=== PATIENT | female | born 1980 | race Caucasian/White ===

== ENCOUNTER → 2018-02-27 14:10 | Outpatient (CLI) | payer OTHER, SELFPAY ==
[2018-02-27 16:02] LABS: TSH w/ Reflex to FT4 1.19 uIU/mL (0.47-4.68)
== END ==
PROVIDERS: Family Provider Family Medicine; PCP Family Medicine; Visit Provider Family Medicine
DX: E04.9 Nontoxic goiter, unspecified (principal)
CPT/HCPCS: 36415; 84443

== ENCOUNTER → 2019-01-12 08:11 | Outpatient (CLI) | payer OTHER, SELFPAY ==
--- NOTE | 2019-01-12 | DI.MG.S_ITS ---
BILATERAL DIGITAL SCREENING MAMMOGRAM 3D/2D WITH CAD: 01/12/2019 CLINICAL: Routine screening. Baseline exam. Family history of breast cancer. No prior exams were available for comparison. There are scattered fibroglandular elements in both breasts. Current study was also evaluated with a Computer Aided Detection (CAD) system. There is a 0.8 cm oval low density mass with an indistinct and circumscribed margin in the right breast at 7 o'clock posterior depth. No other significant masses, calcifications, or other findings are seen in either breast. IMPRESSION: INCOMPLETE: NEEDS ADDITIONAL IMAGING EVALUATION The 0.8 cm oval low density mass in the right breast is indeterminate. Mediolateral and spot compression views as well as additional views with possible ultrasound are recommended. This exam was interpreted at Station ID: [id number]. NOTE: For mammograms, a report in lay terms will be sent to the patient. Approximately 15% of breast malignancies will not be visualized mammographically. In the management of a palpable breast mass, a negative mammogram must not discourage biopsy of a clinically suspicious lesion. Electronically Signed By: Sukhjinder gil/sarah:01/14/2019 07:50:27 letter sent: Additional Imaging Needed ACR BI-RADS Category 0: Incomplete 3340F
== END ==
PROVIDERS: Family Provider Family Medicine; PCP Family Medicine; Visit Provider Family Medicine
DX: Z12.31 Encounter for screening mammogram for malignant neoplasm of breast (principal); Z80.3 Family history of malignant neoplasm of breast
CPT/HCPCS: 77063; 77067

== ENCOUNTER → 2019-01-19 08:14 | Outpatient (CLI) | payer OTHER, SELFPAY ==
[2019-01-19 08:53] LABS: Hematocrit 40.6 % (36-46); Hemoglobin 13.9 g/dL (12.0-16.0); Mean Corpuscular HGB Conc 34.4 % (30-36); Mean Corpuscular Hemoglobin 30.1 PG (26-34); Mean Corpuscular Volume 87.5 fL (80-100); Platelet Count 355 X10^3/uL (150-400); Red Blood Cell Count 4.64 X10^6/uL (4.0-5.2); Red Cell Distribution Width 13.1 % (11.6-14.8); White Blood Cell Count 6.4 X10^3/uL (4.5-11.0)
[2019-01-19 09:09] LABS: Alanine Aminotransferase 20 IU/L (<35); Albumin 4.5 g/dL (3.5-5.0); Albumin Globulin Ratio 1.8 (1.0-2.8); Alkaline Phosphatase 50 U/L (38-126); Aspartate Aminotransferase 26 IU/L (14-36); Bilirubin Total 0.7 mg/dL (0.2-1.3); Blood Urea Nitrogen 12 mg/dL (7-17); Calcium 9.2 mg/dL (8.4-10.2); Carbon Dioxide 29 mmol/L (22-32); Chloride 100 mmol/L (98-107); Cholesterol 211 mg/dL (140-199); Estimated Glomerular Filt Rate > 60.0 mL/min (>60); Globulin 2.5 g/dL (1.7-4.1); Glucose 88 mg/dL (70-100); HDL Cholesterol 86 mg/dL (40-60); HEMOLYSIS 16 (0-50); LDL Cholesterol Calculated 112 mg/dL (<100); Potassium 3.8 mmol/L (3.4-5.1); Sodium 137 mmol/L (137-145); Triglycerides 67 mg/dL (35-150)
[2019-01-19 09:37] LABS: TSH w/ Reflex to FT4 1.46 uIU/mL (0.47-4.68)
== END ==
PROVIDERS: Family Provider Family Medicine; PCP Family Medicine; Visit Provider Nurse Practitioner Family
DX: Z00.00 Encounter for general adult medical examination without abnormal findings (principal); Z13.6 Encounter for screening for cardiovascular disorders; E04.2 Nontoxic multinodular goiter
CPT/HCPCS: 36415; 80053; 80061; 84443; 85027

== ENCOUNTER → 2019-02-06 12:39 | Outpatient (CLI) | payer OTHER, SELFPAY ==
--- NOTE | 2019-02-06 12:41 | DI.US.S_ITS ---
ULTRASOUND OF RIGHT BREAST: 02/06/2019 CLINICAL: Patient returns today to evaluate a focal asymmetry in the right breast. Comparison is made to exams dated: 02/06/2019 mammogram and 01/12/2019 mammogram - [facility]. Real-time ultrasound of the right breast was performed. Jama scale images of the real-time examination were reviewed. No significant abnormalities were seen sonographically in the right breast. The breast was imaged from the 5:30 through the 10:00 positions. IMPRESSION: PROBABLY BENIGN There are no abnormalities seen in the right breast to correspond with the mammography finding. A follow-up right mammogram with possible ultrasound in 6 months is recommended to demonstrate stability. This exam was interpreted at Station ID: [id number]. Electronically Signed By: Darell Candelario M.D. aty/:02/06/2019 14:56:02 copy to: [facility] letter sent: Followup Recommended Ultrasound BI-RADS: 3 Probably benign
--- NOTE | 2019-02-06 12:41 | DI.MG.S_ITS ---
UNILATERAL RIGHT DIGITAL DIAGNOSTIC MAMMOGRAM 3D/2D WITH ADDITIONAL VIEWS: 02/06/2019 CLINICAL: Additional evaluation requested from prior study. Comparison is made to exam dated[facility]. There are scattered fibroglandular elements in right breast. There is a 0.8 cm oval equal density focal asymmetry in the right breast at 8 o'clock posterior depth. This finding persisted on additional imaging today. No other significant masses or calcifications are seen in the breast. IMPRESSION: INCOMPLETE: NEEDS ADDITIONAL IMAGING EVALUATION The 0.8 cm oval equal density focal asymmetry in the right breast is indeterminate. Further evaluation with sonogram is recommended which is scheduled to immediately follow this examination. This exam was interpreted at Station ID: [id number]. NOTE: For mammograms, a report in lay terms will be sent to the patient. Approximately 15% of breast malignancies will not be visualized mammographically. In the management of a palpable breast mass, a negative mammogram must not discourage biopsy of a clinically suspicious lesion. Electronically Signed By: Darell Candelario M.D. at/:02/06/2019 13:24:51 copy to: [facility] ACR BI-RADS Category 0: Incomplete [id number]
== END ==
PROVIDERS: PCP Family Medicine; Visit Provider Family Medicine
DX: R92.8 Other abnormal and inconclusive findings on diagnostic imaging of breast (principal); N64.89 Other specified disorders of breast
CPT/HCPCS: 76642; 77065; G0279

== ENCOUNTER → 2019-09-04 12:21 | Outpatient (CLI) | payer OTHER, SELFPAY | PROVIDERS: PCP Family Medicine; Visit Provider Physician Assistant | DX: R30.0 Dysuria (principal) | CPT/HCPCS: 87077; 87086; 87186 ==

== ENCOUNTER → 2020-01-20 14:19 | Outpatient (CLI) | payer OTHER, SELFPAY ==
--- NOTE | 2020-01-20 14:20 | DI.MG.S_ITS ---
BILATERAL DIGITAL DIAGNOSTIC MAMMOGRAM 3D/2D: 01/20/2020 CLINICAL: LATE SHORT TERM FOLLOW UP. Comparison is made to exams dated: 02/06/2019 mammogram and 01/12/2019 mammogram - [facility]. There are scattered fibroglandular elements in both breasts. There is a 0.8 cm oval equal density focal asymmetry in the right breast at 8 o'clock posterior depth. This is not significantly changed and was not seen on the prior ultrasound. Targeted ultrasound was performed for this abnormality on the same day and no sonographic correlate was found. No other significant masses, calcifications, or other findings are seen in either breast. IMPRESSION: PROBABLY BENIGN The 0.8 cm oval equal density focal asymmetry in the right breast at 8 o'clock posterior depth is probably benign. A follow-up right mammogram in 6 months is recommended to demonstrate stability. This exam was interpreted at Station ID: [id number]. NOTE: For mammograms, a report in lay terms will be sent to the patient. Approximately 15% of breast malignancies will not be visualized mammographically. In the management of a palpable breast mass, a negative mammogram must not discourage biopsy of a clinically suspicious lesion. Electronically Signed By: Jose Brandon M.D. ar/:01/20/2020 15:41:12 letter sent: Followup Recommended ACR BI-RADS Category 3: Probably benign [id number]
--- NOTE | 2020-01-20 14:20 | DI.US.S_ITS ---
LIMITED ULTRASOUND OF RIGHT BREAST: 01/20/2020 CLINICAL: Patient returns today for a six month follow up to evaluate a focal asymmetry in the right breast. Comparison is made to exams dated: 01/20/2020 mammogram, 02/06/2019 ultrasound, 02/06/2019 mammogram, and 01/12/2019 mammogram - Loc[facility]. Ultrasound of the right breast 7-8 o'clock region was performed. No significant abnormalities were seen sonographically in the right breast. IMPRESSION: NEGATIVE There is no sonographic evidence of malignancy. There is no abnormality seen in the right breast to correspond with the mammography finding. A follow-up right mammogram in 6 months is recommended to demonstrate stability. This exam was interpreted at Station ID: [id number]. Electronically Signed By: Jose michel/sarah:01/20/2020 15:43:33 Ultrasound BI-RADS: 1 Negative
== END ==
PROVIDERS: PCP Family Medicine; Referring Provider Family Medicine; Visit Provider Family Medicine
DX: R92.8 Other abnormal and inconclusive findings on diagnostic imaging of breast (principal); N64.89 Other specified disorders of breast
CPT/HCPCS: 76642; 77066; G0279

== ENCOUNTER → 2020-09-15 08:07 | Outpatient (CLI) | payer OTHER, SELFPAY ==
[2020-09-15 09:43] LABS: Add Manual Diff / Slide Review NO; Basophils Absolute Auto 0 /uL (0-100); Basophils Percent Auto 0.5 % (0-2); Eosinophils Absolute Auto 100 /uL (0-450); Hematocrit 39.7 % (36-46); Hemoglobin 13.3 g/dL (12.0-16.0); Lymphocytes Absolute Auto 2000 /uL (1100-4500); Lymphocytes Percent Auto 29.6 % (25-40); Mean Corpuscular HGB Conc 33.4 % (30-36); Mean Corpuscular Hemoglobin 29.2 PG (26-34); Mean Corpuscular Volume 87.5 fL (80-100); Monocytes Absolute Auto 400 /uL (0-900); Monocytes Percent Auto 6.1 % (3-14); Neutrophils Absolute Auto 4200 /uL (1500-7000); Neutrophils Percent Auto 62.8 % (50-75); Platelet Count 338 X10^3/uL (150-400); Red Blood Cell Count 4.54 X10^6/uL (4.0-5.2); Red Cell Distribution Width 13.9 % (11.6-14.8); White Blood Cell Count 6.6 X10^3/uL (4.5-11.0)
[2020-09-15 10:59] LABS: Alanine Aminotransferase 21 IU/L (<35); Albumin 4.1 g/dL (3.5-5.0); Albumin Globulin Ratio 1.5 (1.0-2.8); Alkaline Phosphatase 49 U/L (38-126); Aspartate Aminotransferase 30 IU/L (14-36); Bilirubin Total 0.7 mg/dL (0.2-1.3); Blood Urea Nitrogen 12 mg/dL (7-17); C-Reactive Protein Quant 0.6 mg/dL (<1.0); Calcium 9.3 mg/dL (8.4-10.2); Carbon Dioxide 28 mmol/L (22-32); Chloride 105 mmol/L (98-107); Cholesterol 220 mg/dL (140-199); Estimated Glomerular Filt Rate > 60.0 mL/min (>60); Globulin 2.7 g/dL (1.7-4.1); Glucose 92 mg/dL (70-100); HDL Cholesterol 87 mg/dL (40-60); HEMOLYSIS < 15 (0-50); LDL Cholesterol Calculated 120 mg/dL (<100); Sodium 137 mmol/L (137-145); Total Protein 6.8 g/dL (6.3-8.2); Triglycerides 67 mg/dL (35-150)
[2020-09-15 11:00] LABS: Rheumatoid Factor < 8.6 IU/mL (<12.0)
[2020-09-15 12:11] LABS: TSH w/ Reflex to FT4 1.15 uIU/mL (0.47-4.68)
[2020-09-16 17:45] LABS: ANA Screen, IFA Negative (.)
== END ==
PROVIDERS: PCP Family Medicine; Referring Provider Family Medicine; Visit Provider Family Medicine
DX: R21 Rash and other nonspecific skin eruption (principal); E04.9 Nontoxic goiter, unspecified; E66.9 Obesity, unspecified
CPT/HCPCS: 36415; 80053; 80061; 84443; 85025; 86038; 86140; 86430

== ENCOUNTER → 2021-01-20 15:11 | Outpatient (CLI) | payer OTHER, SELFPAY ==
--- NOTE | 2021-01-20 15:12 | DI.MG.S_ITS ---
BILATERAL DIGITAL DIAGNOSTIC MAMMOGRAM 3D/2D: 01/20/2021 CLINICAL: Short term follow up of the right breast, due for bilateral imaging. Family history of breast cancer. Comparison is made to exams dated: 01/20/2020 mammogram, 02/06/2019 mammogram, and 01/12/2019 mammogram - [facility]. There are scattered fibroglandular elements in both breasts. Stable focal asymmetry in the right breast at 8 o'clock posterior depth. This was not seen on the prior ultrasound. No other significant masses, calcifications, or other findings are seen in either breast. IMPRESSION: NEGATIVE Focal asymmetry in the right breast at 8 o'clock posterior depth demonstrates long-term stability and is most consistent with fibroglandular tissue and is benign. A 1 year screening mammogram is recommended. Exam findings were conveyed to the patient. This exam was interpreted at Station ID: [id number]. NOTE: For mammograms, a report in lay terms will be sent to the patient. Approximately 15% of breast malignancies will not be visualized mammographically. In the management of a palpable breast mass, a negative mammogram must not discourage biopsy of a clinically suspicious lesion. Electronically Signed By: Santi Payne M.D. [facility] [place]/:01/20/2021 15:38:22 letter sent: Normal Exam ACR BI-RADS Category 1: Negative 3341F
== END ==
PROVIDERS: PCP Family Medicine; Referring Provider Family Medicine; Visit Provider Family Medicine
DX: R92.8 Other abnormal and inconclusive findings on diagnostic imaging of breast (principal); Z80.3 Family history of malignant neoplasm of breast; N64.89 Other specified disorders of breast
CPT/HCPCS: 77066; G0279

== ENCOUNTER → 2022-01-18 16:38 | Outpatient (CLI) | payer OTHER, SELFPAY ==
--- NOTE | 2022-01-18 16:41 | DI.US.S_ITS ---
PROCEDURE: US THYROID INDICATIONS: 2.5 year f/u on nodules TECHNIQUE: Real-time scanning was performed of the thyroid gland, with image documentation. COMPARISON: [facility], US, THYROID, 02/28/2017, 14:02. [facility] Ultrasound, US, US THYROID, 04/02/2019, 17:09. FINDINGS: The right thyroid measures 6.0 x 1.8 x 2.1 cm (previously 5.0 x 1.6 x 1.8 cm). The left thyroid lobe measures 5.2 x 3.6 x 3.0 cm (previously 5.9 x 3.6 x 3.4 cm). Isthmus measures 4 mm in thickness. Nodule number: 1 Location: Left mid Size: 4.5 x 3.0 x 2.8 cm, increased from 3.5 x 3.2 x 2.9 cm in March 2019, 4.7 x 3.5 x 3.7 cm on 2017 exam. Composition: Solid Echogenicity: Hypoechoic Shape: Wider than tall Margins: Munoz Echogenic foci: Coarse central and peripheral calcification. Total points: 6 ACR TI-RADS category: Moderately suspicious Nodule number: 2 Location: Right mid Size: 3.2 x 1.4 x 1.3 cm, previously 2.5 x 1.2 x 1.0 cm on March 2019 exam and 2.5 x 1.0 x 1.1 cm in 2017. Composition: Predominantly solid Echogenicity: Hypoechoic Shape: Wider than tall Margins: Lobulated Echogenic foci: None. Total points: 6 ACR TI-RADS category: Moderately suspicious. Nodule number: 3 Location: Right inferior Size: 1.9 x 1.1 x 1.1 cm, not significantly changed from 2017 measuring 1.2 x 1.1 x 1.0 cm. Composition: Solid Echogenicity: Isoechoic and hypoechoic Shape: Wider than tall Margins: Smooth Echogenic foci: None Total points: 4 ACR TI-RADS category: Moderately suspicious. IMPRESSION: Multiple bilateral thyroid nodules have only slightly increased in size since 2017 exam (and have waxed/waned on successive exams since 2012). Findings are considered benign. ACR TI-RADS definitions and recommendations: TI-RADS 1 (benign): 0 points. FNA not needed. TI-RADS 2 (not suspicious): 2 points. FNA not needed. TI-RADS 3 (mildly suspicious): 3 points. * FNA if 2.5 cm or larger, follow up if 1.5 cm or larger (at 1, 3, and 5 years). TI-RADS 4 (moderately suspicious): 4-6 points. * FNA if 1.5 cm or larger, follow up if 1 cm or larger (at 1, 2, 3, and 5 years). TI-RADS 5 (highly suspicious): 7 points or more. * FNA if 1 cm or larger, follow up if 0.5 cm or larger (every year for 5 years). Dictated by: Vincent Castellano M.D. on 01/19/2022 at 12:07 Approved by: Vincent Castellano M.D. on 01/19/2022 at 12:15
== END ==
PROVIDERS: PCP Family Medicine; Referring Provider Physician Assistant; Visit Provider Physician Assistant
DX: E04.2 Nontoxic multinodular goiter (principal)
CPT/HCPCS: 76536

== ENCOUNTER → 2022-01-25 15:40 | Outpatient (CLI) | payer OTHER, SELFPAY ==
--- NOTE | 2022-01-25 15:42 | DI.MG.S_ITS ---
BILATERAL DIGITAL SCREENING MAMMOGRAM 3D/2D WITH CAD: 01/25/2022 CLINICAL: Routine screening. Family history of breast cancer. Comparison is made to exams dated: 01/20/2021 mammogram, 01/20/2020 mammogram, and 01/12/2019 mammogram - [facility]. There are scattered areas of fibroglandular density in both breasts (category b / 25%-50% glandular tissue). Current study was also evaluated with a Computer Aided Detection (CAD) system. No significant masses, calcifications, or other findings are seen in either breast. There has been no significant interval change. IMPRESSION: NEGATIVE There is no mammographic evidence of malignancy. A 1 year screening mammogram is recommended. Based on Tyrer-Cuzick model (a risk assessment model), the patient's lifetime risk is 21.5% and her 10 year risk is 3.6%. If a patient has an elevated risk, a more comprehensive evaluation should be considered and/or a referral to a genetic counselor. The [place] [employer], [employer], and NCCN Guidelines advise the consideration of Breast MRI as an adjunct to screening mammography in patients whose Lifetime risk to develop breast cancer is 20% or higher. This exam was interpreted at Station ID: [id number]. NOTE: For mammograms, a report in lay terms will be sent to the patient. Approximately 15% of breast malignancies will not be visualized mammographically. In the management of a palpable breast mass, a negative mammogram must not discourage biopsy of a clinically suspicious lesion. Electronically Signed By: Joanne brasher/sarah:01/26/2022 11:05:39 letter sent: Normal Exam ACR BI-RADS Category 1: Negative 3341F
== END ==
PROVIDERS: PCP Family Medicine; Referring Provider Family Medicine; Visit Provider Family Medicine
DX: Z12.31 Encounter for screening mammogram for malignant neoplasm of breast (principal); Z80.3 Family history of malignant neoplasm of breast
CPT/HCPCS: 77063; 77067

== ENCOUNTER → 2022-05-19 17:00 | Outpatient (CLI) | payer OTHER, SELFPAY ==
--- NOTE | 2022-05-19 17:03 | DI.RAD.S_ITS ---
PROCEDURE: XR HIP W PEL IF DONE LT 2V INDICATIONS: Left hip pain TECHNIQUE: AP pelvis with lateral view(s) of the left hip(s). COMPARISON: None. FINDINGS: Bones: No fractures or dislocations. Pelvic ring appears intact. No suspicious bony lesions. Soft tissues: The visualized bowel gas pattern is normal. No suspicious soft tissue calcifications. IMPRESSION: No significant osseous abnormality. Dictated by: Santi Payne M.D. on 05/20/2022 at 9:32 Approved by: Santi Payen M.D. on 05/20/2022 at 9:32
== END ==
PROVIDERS: Family Provider Family Medicine; PCP Family Medicine; Referring Provider Family Medicine; Visit Provider Family Medicine
DX: M25.552 Pain in left hip (principal); E04.2 Nontoxic multinodular goiter; E66.9 Obesity, unspecified; Z68.31 Body mass index [BMI] 31.0-31.9, adult
CPT/HCPCS: 36415; 73502; 80053; 84443

== ENCOUNTER → 2022-05-19 17:31 | Outpatient (CLI) | payer OTHER, SELFPAY ==
[2022-05-19 18:14] LABS: Alanine Aminotransferase 25 IU/L (<35); Albumin 4.3 g/dL (3.5-5.0); Albumin Globulin Ratio 1.5 (1.0-2.8); Alkaline Phosphatase 49 U/L (38-126); Aspartate Aminotransferase 26 IU/L (14-36); BUN Creatinine Ratio 22.4 (6-22); Bilirubin Total 0.4 mg/dL (0.2-1.3); Blood Urea Nitrogen 13 mg/dL (7-17); Calcium 8.7 mg/dL (8.4-10.2); Carbon Dioxide 27 mmol/L (22-32); Chloride 100 mmol/L (98-107); Estimated Glomerular Filt Rate > 60 mL/min (>60); Globulin 2.9 g/dL (1.7-4.1); Glucose 85 mg/dL (70-100); HEMOLYSIS 39 (0-50); Potassium 3.7 mmol/L (3.4-5.1); Sodium 135 mmol/L (137-145); Total Protein 7.2 g/dL (6.3-8.2)
[2022-05-19 18:55] LABS: TSH w/ Reflex to FT4 2.25 uIU/mL (0.47-4.68)
== END ==
PROVIDERS: Family Provider Family Medicine; PCP Family Medicine; Referring Provider Family Medicine; Visit Provider Family Medicine
DX: E04.2 Nontoxic multinodular goiter (principal); E66.9 Obesity, unspecified; Z68.31 Body mass index [BMI] 31.0-31.9, adult
CPT/HCPCS: 36415; 80053; 84443

== ENCOUNTER 2022-08-22 15:45 | Outpatient (RCR) | payer OTHER, SELFPAY ==
--- NOTE | 2022-06-01 16:45 | PT.OIE ---
Current Diagnoses Pain in left hip (06/01/22) Pain in unspecified hip (06/01/22) Stiffness of right hip, not elsewhere classified (06/01/22) Stiffness of left hip, not elsewhere classified (06/01/22) Past Medical History (Last Reviewed 05/19/22 @ 17:22 by Malinda Mcclain DO) BMI 31.0-31.9,adult Chronic back pain (~2006) Multinodular goiter (2012) Plantar wart Rosacea Skin cancer Past Surgical History (Last Reviewed 05/19/22 @ 17:22 by Malinda Mcclain DO) Anesthesia History of third molar tooth extraction History of tonsillectomy (~2010) Status post delivery (~2012) Status post Mohs surgery (~05/2015) Visit Care Team Role Provider Type Malinda Mcclain DO Attending Provider Physician Family Provider Primary Care Provider Referring Provider Specialty: Family Practice Address: [address] [place] [address], [facility] Email: [email or web address] Physical Therapy Initial Evaluation PT-OP-A Visit Information Start: 06/01/22 18:00 Freq: Status: Active Protocol: Document 06/01/22 16:00 DCW (Rec: 06/01/22 18:05 DCW [id number]) Out-Patient Physical Therapy Visit Information Visit Information Visit Type Initial Evaluation Visit Start Time 16:00 Visit Stop Time 16:45 Total Visit Minutes 45 Visit Number 1 Number of FINISH PAINTER Visits 0 Evaluation Information Evaluation Date 06/01/22 PT-OP-B Current Condition Start: 06/01/22 18:00 Freq: Status: Active Protocol: Document 06/01/22 16:00 DCW (Rec: 06/02/22 17:56 DCW [id number]) Current Condition History of Current Condition Onset Date ~9 months Current Complaints L Hip feels it like it is going out with lateral movements History of Current Condition Pt is a 41 year old female reporting that she has been having left hip pain and instability since last summer. Notes that specifically with lateral movement or when first getting up, she gets a sharp pain in her hip and it feels like it is going out. Reports there is a big, sharp pain, and then I can't put any weight through it. Typically does a lot of hiking and walking, but is currently unable to walk even two miles . Admits that she has had hip and low back pain for years, but these symptoms are new. Notes she had been working with a massage therapy long- term to try to get her hip even, but stopped when covid began and has not gone back. Denies any falls. Treatment Goals Patient/Caregiver Goals Pt would like to return to hiking and walking without her hip giving out. PT-OP-C Subjective Start: 06/01/22 18:00 Freq: Status: Active Protocol: Document 06/01/22 16:00 DCW (Rec: 06/01/22 18:05 DCW [id number]) OP-PT Subjective Patient Comments Patient Comments My hip just feels like it goes out when I'm up walking, especially when stepping to the side. Patient Questionnaires Lower Extremity Functional Scale LEFS Score 66/80 = 82.5 LEFS Impairment 1 to 19% Impaired (Score 63-79 ) OP-PT Pain Assessment Location Left Anterior Lateral Hip Intensity 3 Scale Used Numeric (0 - 10) Description Aching Frequency Occasional PT-OP-F Manual Assessment Start: 06/01/22 18:00 Freq: Status: Active Protocol: Document 06/01/22 16:00 DCW (Rec: 06/02/22 17:56 DCW [id number]) Manual Assessments Joint Mobility Assessment Joint Mobility Assessment Bilateral hips have noticeable firm end-feels with internal and external rotation, right hip significantly limited in ER, left hip more limited with internal rotation PT-OP-K Range of Motion Start: 06/01/22 18:00 Freq: Status: Active Protocol: Document 06/01/22 16:00 DCW (Rec: 06/02/22 17:56 DCW [id number]) Hip Goniometric Range of Motion Hip Right Passive Hip ROM WFL No Testing Position Supine Internal Rotation 40 External Rotation 18 Left Passive Hip ROM WFL No Testing Position Supine Internal Rotation 31 External Rotation 43 PT-OP-L Special Tests Start: 06/01/22 18:00 Freq: Status: Active Protocol: Document 06/01/22 16:00 DCW (Rec: 06/02/22 17:56 DCW [id number]) Special Tests Hip Special Tests Traction Test Results Significant pain relief with long-axis traction on L LE Straight Leg Raise Test Results Negative Scour Test Test Results Negative Piriformis Test Results R Piriformis tightness FREDIS Test Results Negative PT-OP-M Strength Start: 06/01/22 18:00 Freq: Status: Active Protocol: Document 06/01/22 16:00 DCW (Rec: 06/02/22 17:56 DCW [id number]) Hip Strength Hip Manual Muscle Testing Right Flexion (L2) 4+ Good+ Abduction 4+ Good+ Adduction 4+ Good+ External Rotation 4+ Good+ Internal Rotation 4+ Good+ Left Flexion (L2) 4 Good Abduction 4 Good Adduction 4 Good External Rotation 4 Good Internal Rotation 3+ Fair+ PT-OP-Q Treatments Start: 06/01/22 18:00 Freq: Status: Active Protocol: Document 06/01/22 16:00 DCW (Rec: 06/01/22 18:05 DCW [id number]) Therapeutic Exercises Sidelying Exercises Reverse Clamshell Side left Clamshell Sidelying Exercise Name Clamshell Side left Sitting Exercises Piriformis Stretch Sitting Exercise Name Seated figure-4 Side right PT-OP-T Assessment and Plan Start: 06/01/22 18:00 Freq: Status: Active Protocol: Document 06/01/22 16:00 DCW (Rec: 06/03/22 08:42 DCW [id number]) Physical Therapy Assessment Rehab Potential Rehabilitation Potential Good Evaluation Complexity Number of Personal Factors/Comorbidities 1-2 Number of Body Systems Impaired 1-2 Clinical Presentation at Evaluation Stable Impairments Impairments Functional Activities, Functional Mobility,Pain,ROM, Soft Tissue Mobility,Strength Goals Two Impairment Pt unable to hike due to sudden intense hip pain with some LE movements Half-Way Goal (LTG) Pt to return to walking/hiking at least four miles without any instances of debilitating left hip pain LTG Duration 08/01/22 One Impairment Pt does not have an appropriate home exercise program Short Term Goal (STG) Pt to be independent and compliant with an appropriate HEP STG Duration 07/02/22 Assessment Summary Assessment Pt presents with unusual signs and symptoms of occasional sudden left hip pain, most of the time when performing a lateral step or when first getting up out of a chair. Pain is largely located in the anterior, or anteriolateral, portion of the left hip. Subjective history and description of symptoms could potentially suggest labral involvement, however therapist was completely unable to replicate any symptoms in the clinic at the time of evaluation. Did make note of limited ROM in both hips, most significantly with right hip external rotation limited to 18? passively. Additionally, notable weakness in left hip in all planes, specifically, pt scores an MMT of 3+/5 in left internal rotation. Skilled PT going forward should attempt to focus on improving bilateral ROM of hips through flexibility, STM, and joint mobilizations, in addition to strengthening in an effort to improve stability and functional mobility through her hips. If pt does not progress as expected, would likely benefit from advanced imaging in the future . Physical Therapy Plan Frequency and Duration Frequency of Treatment 2x/Week Plan of Care Start Date 06/03/22 Plan of Care End Date 08/03/22 Therapeutic Interventions Therapeutic Interventions Balance Training,Gait Training ,Home Exercise Program,Joint Mobilizations,Manual Therapy, Neuromuscular Re-education, Patient/Caregiver Education, Self-Care/Home Management,Soft Tissue Mobilization, Therapeutic Activities, Therapeutic Exercises Next Visit Focus/Plan Next Note Type Treatment Note Next Visit Plan Hip strengthening, joint mobilizations, STM
--- NOTE | 2022-06-01 16:45 | PT.OPPOC ---
Physical, Occupational & Speech Therapy At [facility] Current Diagnoses Pain in left hip (06/01/22) Pain in unspecified hip (06/01/22) Stiffness of right hip, not elsewhere classified (06/01/22) Stiffness of left hip, not elsewhere classified (06/01/22) Visit Care Team Role Provider Type Malinda Mcclain DO Attending Provider Physician Family Provider Primary Care Provider Referring Provider Specialty: Family Practice Address: [address] [place] [address], [id number] Email: [email or web address] Plan Of Care PT-OP-T Assessment and Plan Start: 06/01/22 18:00 Freq: Status: Active Protocol: Document 06/01/22 16:00 DCW (Rec: 06/03/22 08:42 DCW [id number]) Physical Therapy Assessment Rehab Potential Rehabilitation Potential Good Evaluation Complexity Number of Personal Factors/Comorbidities 1-2 Number of Body Systems Impaired 1-2 Clinical Presentation at Evaluation Stable Impairments Impairments Functional Activities, Functional Mobility,Pain,ROM, Soft Tissue Mobility,Strength Goals Two Impairment Pt unable to hike due to sudden intense hip pain with some LE movements Assisted Goal (LTG) Pt to return to walking/hiking at least four miles without any instances of debilitating left hip pain LTG Duration 08/01/22 One Impairment Pt does not have an appropriate home exercise program Short Term Goal (STG) Pt to be independent and compliant with an appropriate HEP STG Duration 07/02/22 Assessment Summary Assessment Pt presents with unusual signs and symptoms of occasional sudden left hip pain, most of the time when performing a lateral step or when first getting up out of a chair. Pain is largely located in the anterior, or anteriolateral, portion of the left hip. Subjective history and description of symptoms could potentially suggest labral involvement, however therapist was completely unable to replicate any symptoms in the clinic at the time of evaluation. Did make note of limited ROM in both hips, most significantly with right hip external rotation limited to 18? passively. Additionally, notable weakness in left hip in all planes, specifically, pt scores an MMT of 3+/5 in left internal rotation. Skilled PT going forward should attempt to focus on improving bilateral ROM of hips through flexibility, STM, and joint mobilizations, in addition to strengthening in an effort to improve stability and functional mobility through her hips. If pt does not progress as expected, would likely benefit from advanced imaging in the future . Physical Therapy Plan Frequency and Duration Frequency of Treatment 2x/Week Plan of Care Start Date 06/03/22 Plan of Care End Date 08/03/22 Therapeutic Interventions Therapeutic Interventions Balance Training,Gait Training ,Home Exercise Program,Joint Mobilizations,Manual Therapy, Neuromuscular Re-education, Patient/Caregiver Education, Self-Care/Home Management,Soft Tissue Mobilization, Therapeutic Activities, Therapeutic Exercises Next Visit Focus/Plan Next Note Type Treatment Note Next Visit Plan Hip strengthening, joint mobilizations, STM Plan of Care Dates Plan of Care Start Date 06/03/22 Plan of Care End Date 08/03/22 Electronically Signed by: Juan Luis Fine, PT 06/03/22 0843 If you are in agreement with this Plan of Care, please return a signed and dated copy. I have reviewed this Plan of Care and certify that the skilled therapy services above are required to meet the patient?s needs. Physician Signature Date Printed Name and Credentials Clinical Instructor Signature Printed Name and Credentials
--- NOTE | 2022-06-07 17:34 | PT.OTN ---
Current Diagnoses Pain in left hip (06/07/22) Pain in unspecified hip (06/07/22) Stiffness of right hip, not elsewhere classified (06/07/22) Stiffness of left hip, not elsewhere classified (06/07/22) Physical Therapy Treatment Note PT-OP-A Visit Information Start: 06/01/22 18:00 Freq: Status: Active Protocol: Document 06/07/22 16:50 DCW (Rec: 06/07/22 17:34 DCW [id number]) Out-Patient Physical Therapy Visit Information Visit Information Visit Type Treatment Note Visit Start Time 16:50 Visit Stop Time 17:30 Total Visit Minutes 40 Visit Number 2 Number of FEED INSPECTION SUPERVISOR Visits 0 Evaluation Information Evaluation Date 06/01/22 PT-OP-B Current Condition Start: 06/01/22 18:00 Freq: Status: Active Protocol: Document 06/01/22 16:00 DCW (Rec: 06/02/22 17:56 DCW [id number]) Current Condition History of Current Condition Onset Date ~9 months Current Complaints L Hip feels it like it is going out with lateral movements History of Current Condition Pt is a 41 year old female reporting that she has been having left hip pain and instability since last summer. Notes that specifically with lateral movement or when first getting up, she gets a sharp pain in her hip and it feels like it is going out. Reports there is a big, sharp pain, and then I can't put any weight through it. Typically does a lot of hiking and walking, but is currently unable to walk even two miles . Admits that she has had hip and low back pain for years, but these symptoms are new. Notes she had been working with a massage therapy long- term to try to get her hip even, but stopped when covid began and has not gone back. Denies any falls. Treatment Goals Patient/Caregiver Goals Pt would like to return to hiking and walking without her hip giving out. PT-OP-C Subjective Start: 06/01/22 18:00 Freq: Status: Active Protocol: Document 06/07/22 16:50 DCW (Rec: 06/07/22 17:34 DCW [id number]) OP-PT Subjective Patient Comments Patient Comments It's not really any different . PT-OP-F Manual Assessment Start: 06/01/22 18:00 Freq: Status: Active Protocol: Document 06/01/22 16:00 DCW (Rec: 06/02/22 17:56 DCW [id number]) Manual Assessments Joint Mobility Assessment Joint Mobility Assessment Bilateral hips have noticeable firm end-feels with internal and external rotation, right hip significantly limited in ER, left hip more limited with internal rotation PT-OP-K Range of Motion Start: 06/01/22 18:00 Freq: Status: Active Protocol: Document 06/01/22 16:00 DCW (Rec: 06/02/22 17:56 DCW [id number]) Hip Goniometric Range of Motion Hip Right Passive Hip ROM WFL No Testing Position Supine Internal Rotation 40 External Rotation 18 Left Passive Hip ROM WFL No Testing Position Supine Internal Rotation 31 External Rotation 43 PT-OP-L Special Tests Start: 06/01/22 18:00 Freq: Status: Active Protocol: Document 06/01/22 16:00 DCW (Rec: 06/02/22 17:56 DCW [id number]) Special Tests Hip Special Tests Traction Test Results Significant pain relief with long-axis traction on L LE Straight Leg Raise Test Results Negative Scour Test Test Results Negative Piriformis Test Results R Piriformis tightness FREDIS Test Results Negative PT-OP-M Strength Start: 06/01/22 18:00 Freq: Status: Active Protocol: Document 06/01/22 16:00 DCW (Rec: 06/02/22 17:56 DCW [id number]) Hip Strength Hip Manual Muscle Testing Right Flexion (L2) 4+ Good+ Abduction 4+ Good+ Adduction 4+ Good+ External Rotation 4+ Good+ Internal Rotation 4+ Good+ Left Flexion (L2) 4 Good Abduction 4 Good Adduction 4 Good External Rotation 4 Good Internal Rotation 3+ Fair+ PT-OP-Q Treatments Start: 06/01/22 18:00 Freq: Status: Active Protocol: Document 06/07/22 16:50 DCW (Rec: 06/07/22 17:34 DCW [id number]) Gym Equipment Cable Column (Body Solid) Hip Adduction Resistance 40# Hip Abduction Resistance 30# Shuttle Recovery Unilateral Squats Resistance 67# Shuttle Recovery Platform Stable Bilateral Squats Resistance 100# Shuttle Recovery Platform Stable Therapeutic Exercises Supine Exercises ITB stretch Supine Exercise Name ITB stretch Side bilateral Piriformis stretch Supine Exercise Name Figure-4 Side bilateral Sitting Exercises Piriformis Stretch Sitting Exercise Name Seated figure-4 Side right Standing Exercises Hip Extension Standing Exercise Name Hip Extension Side bilateral Resistance Red Other Exercises Resisted Ambulation Other Exercise Name Resisted side-stepping Resistance Red Manual Therapy Treatment Manual Traction Long-axis LE Details Long axis /c strap Body Position Supine PT-OP-T Assessment and Plan Start: 06/01/22 18:00 Freq: Status: Active Protocol: Document 06/07/22 16:50 DCW (Rec: 06/07/22 17:34 DCW [id number]) Physical Therapy Assessment Impairments Impairments Functional Activities, Functional Mobility,Pain,ROM, Soft Tissue Mobility,Strength Goals Two Impairment Pt unable to hike due to sudden intense hip pain with some LE movements Usp Goal (LTG) Pt to return to walking/hiking at least four miles without any instances of debilitating left hip pain LTG Duration 08/01/22 One Impairment Pt does not have an appropriate home exercise program Short Term Goal (STG) Pt to be independent and compliant with an appropriate HEP STG Duration 07/02/22 Assessment Summary Assessment Pt noted that following her PT session, her left hip was really feeling it, but felt it was a good workout. Left hip continues to show significant weakness vs right, but right has much more limited flexibility. Physical Therapy Plan Frequency and Duration Frequency of Treatment 2x/Week Plan of Care Start Date 06/03/22 Plan of Care End Date 08/03/22 Therapeutic Interventions Therapeutic Interventions Balance Training,Gait Training ,Home Exercise Program,Joint Mobilizations,Manual Therapy, Neuromuscular Re-education, Patient/Caregiver Education, Self-Care/Home Management,Soft Tissue Mobilization, Therapeutic Activities, Therapeutic Exercises Next Visit Focus/Plan Next Note Type Treatment Note Next Visit Plan Hip strengthening, joint mobilizations, STM
--- NOTE | 2022-06-21 17:39 | PT.OTN ---
Current Diagnoses Pain in left hip (06/21/22) Pain in unspecified hip (06/21/22) Stiffness of right hip, not elsewhere classified (06/21/22) Stiffness of left hip, not elsewhere classified (06/21/22) Physical Therapy Treatment Note PT-OP-A Visit Information Start: 06/01/22 18:00 Freq: Status: Active Protocol: Document 06/21/22 16:45 DCW (Rec: 06/21/22 17:39 DCW [id number]) Out-Patient Physical Therapy Visit Information Visit Information Visit Type Treatment Note Visit Start Time 16:45 Visit Stop Time 17:30 Total Visit Minutes 45 Visit Number 3 Number of SHOVEL LOGGER Visits 0 Evaluation Information Evaluation Date 06/01/22 PT-OP-B Current Condition Start: 06/01/22 18:00 Freq: Status: Active Protocol: Document 06/01/22 16:00 DCW (Rec: 06/02/22 17:56 DCW [id number]) Current Condition History of Current Condition Onset Date ~9 months Current Complaints L Hip feels it like it is going out with lateral movements History of Current Condition Pt is a 41 year old female reporting that she has been having left hip pain and instability since last summer. Notes that specifically with lateral movement or when first getting up, she gets a sharp pain in her hip and it feels like it is going out. Reports there is a big, sharp pain, and then I can't put any weight through it. Typically does a lot of hiking and walking, but is currently unable to walk even two miles . Admits that she has had hip and low back pain for years, but these symptoms are new. Notes she had been working with a massage therapy long- term to try to get her hip even, but stopped when covid began and has not gone back. Denies any falls. Treatment Goals Patient/Caregiver Goals Pt would like to return to hiking and walking without her hip giving out. PT-OP-C Subjective Start: 06/01/22 18:00 Freq: Status: Active Protocol: Document 06/21/22 16:45 DCW (Rec: 06/21/22 17:39 DCW [id number]) OP-PT Subjective Patient Comments Patient Comments Notes she has noticed her hip has been spasming recently. PT-OP-F Manual Assessment Start: 06/01/22 18:00 Freq: Status: Active Protocol: Document 06/01/22 16:00 DCW (Rec: 06/02/22 17:56 DCW [id number]) Manual Assessments Joint Mobility Assessment Joint Mobility Assessment Bilateral hips have noticeable firm end-feels with internal and external rotation, right hip significantly limited in ER, left hip more limited with internal rotation PT-OP-K Range of Motion Start: 06/01/22 18:00 Freq: Status: Active Protocol: Document 06/01/22 16:00 DCW (Rec: 06/02/22 17:56 DCW [id number]) Hip Goniometric Range of Motion Hip Right Passive Hip ROM WFL No Testing Position Supine Internal Rotation 40 External Rotation 18 Left Passive Hip ROM WFL No Testing Position Supine Internal Rotation 31 External Rotation 43 PT-OP-L Special Tests Start: 06/01/22 18:00 Freq: Status: Active Protocol: Document 06/01/22 16:00 DCW (Rec: 06/02/22 17:56 DCW [id number]) Special Tests Hip Special Tests Traction Test Results Significant pain relief with long-axis traction on L LE Straight Leg Raise Test Results Negative Scour Test Test Results Negative Piriformis Test Results R Piriformis tightness FREDIS Test Results Negative PT-OP-M Strength Start: 06/01/22 18:00 Freq: Status: Active Protocol: Document 06/01/22 16:00 DCW (Rec: 06/02/22 17:56 DCW [id number]) Hip Strength Hip Manual Muscle Testing Right Flexion (L2) 4+ Good+ Abduction 4+ Good+ Adduction 4+ Good+ External Rotation 4+ Good+ Internal Rotation 4+ Good+ Left Flexion (L2) 4 Good Abduction 4 Good Adduction 4 Good External Rotation 4 Good Internal Rotation 3+ Fair+ PT-OP-Q Treatments Start: 06/01/22 18:00 Freq: Status: Active Protocol: Document 06/21/22 16:45 DCW (Rec: 06/21/22 17:39 DCW [id number]) Gym Equipment Cable Column (Body Solid) Hip Adduction Resistance 50# Hip Abduction Resistance 40# Shuttle Recovery Unilateral Squats Resistance 67# Shuttle Recovery Platform Stable Reps/Time 2x8 L, 2x10 R Bilateral Squats Resistance 125# Shuttle Recovery Platform Stable Reps/Time 1x8, 1x10 Shuttle Balance Red Comments Staggered weight shift Lateral weight shift Therapeutic Exercises Supine Exercises Hip flexor stretch Supine Exercise Name Hip flexor stretch - leg off table Side left ITB stretch Supine Exercise Name ITB stretch Side bilateral Piriformis stretch Supine Exercise Name Figure-4 Side bilateral Standing Exercises Step-ups Standing Exercise Name Step-ups Side bilateral Resistance 8 step R, 6 L Hip Extension Standing Exercise Name Hip Extension Side bilateral Resistance Green Other Exercises Resisted Ambulation Other Exercise Name Resisted side-stepping Resistance Green Manual Therapy Treatment Manual Traction Long-axis LE Details Long axis /c strap Body Position Supine PT-OP-T Assessment and Plan Start: 06/01/22 18:00 Freq: Status: Active Protocol: Document 06/21/22 16:45 DCW (Rec: 06/21/22 17:39 DCW [id number]) Physical Therapy Assessment Impairments Impairments Functional Activities, Functional Mobility,Pain,ROM, Soft Tissue Mobility,Strength Goals Two Impairment Pt unable to hike due to sudden intense hip pain with some LE movements Residential Goal (LTG) Pt to return to walking/hiking at least four miles without any instances of debilitating left hip pain LTG Duration 08/01/22 One Impairment Pt does not have an appropriate home exercise program Short Term Goal (STG) Pt to be independent and compliant with an appropriate HEP STG Duration 07/02/22 Assessment Summary Assessment Able to tolerate increased resistance with most activities. Pt demonstrated significant weakness and difficulty with left step-ups, recommended adding to HEP. Physical Therapy Plan Frequency and Duration Frequency of Treatment 2x/Week Plan of Care Start Date 06/03/22 Plan of Care End Date 08/03/22 Therapeutic Interventions Therapeutic Interventions Balance Training,Gait Training ,Home Exercise Program,Joint Mobilizations,Manual Therapy, Neuromuscular Re-education, Patient/Caregiver Education, Self-Care/Home Management,Soft Tissue Mobilization, Therapeutic Activities, Therapeutic Exercises Next Visit Focus/Plan Next Note Type Treatment Note Next Visit Plan Hip strengthening, joint mobilizations, STM
--- NOTE | 2022-06-23 17:36 | PT.OTN ---
Current Diagnoses Pain in left hip (06/23/22) Pain in unspecified hip (06/23/22) Stiffness of right hip, not elsewhere classified (06/23/22) Stiffness of left hip, not elsewhere classified (06/23/22) Physical Therapy Treatment Note PT-OP-A Visit Information Start: 06/01/22 18:00 Freq: Status: Active Protocol: Document 06/23/22 16:45 DCW (Rec: 06/23/22 17:36 DCW [id number]) Out-Patient Physical Therapy Visit Information Visit Information Visit Type Treatment Note Visit Start Time 16:45 Visit Stop Time 17:30 Total Visit Minutes 45 Visit Number 4 Number of CHILD SPECIALIST Visits 0 Evaluation Information Evaluation Date 06/01/22 PT-OP-B Current Condition Start: 06/01/22 18:00 Freq: Status: Active Protocol: Document 06/01/22 16:00 DCW (Rec: 06/02/22 17:56 DCW [id number]) Current Condition History of Current Condition Onset Date ~9 months Current Complaints L Hip feels it like it is going out with lateral movements History of Current Condition Pt is a 41 year old female reporting that she has been having left hip pain and instability since last summer. Notes that specifically with lateral movement or when first getting up, she gets a sharp pain in her hip and it feels like it is going out. Reports there is a big, sharp pain, and then I can't put any weight through it. Typically does a lot of hiking and walking, but is currently unable to walk even two miles . Admits that she has had hip and low back pain for years, but these symptoms are new. Notes she had been working with a massage therapy long- term to try to get her hip even, but stopped when covid began and has not gone back. Denies any falls. Treatment Goals Patient/Caregiver Goals Pt would like to return to hiking and walking without her hip giving out. PT-OP-C Subjective Start: 06/01/22 18:00 Freq: Status: Active Protocol: Document 06/23/22 16:45 DCW (Rec: 06/23/22 17:36 DCW [id number]) OP-PT Subjective Patient Comments Patient Comments Went hiking yesterday, bent over to the side, got a big ow, took some NSAIDs and iced , feels a little more inflammed recently, but notes that it does feel stronger. PT-OP-F Manual Assessment Start: 06/01/22 18:00 Freq: Status: Active Protocol: Document 06/01/22 16:00 DCW (Rec: 06/02/22 17:56 DCW [id number]) Manual Assessments Joint Mobility Assessment Joint Mobility Assessment Bilateral hips have noticeable firm end-feels with internal and external rotation, right hip significantly limited in ER, left hip more limited with internal rotation PT-OP-K Range of Motion Start: 06/01/22 18:00 Freq: Status: Active Protocol: Document 06/01/22 16:00 DCW (Rec: 06/02/22 17:56 DCW [id number]) Hip Goniometric Range of Motion Hip Right Passive Hip ROM WFL No Testing Position Supine Internal Rotation 40 External Rotation 18 Left Passive Hip ROM WFL No Testing Position Supine Internal Rotation 31 External Rotation 43 PT-OP-L Special Tests Start: 06/01/22 18:00 Freq: Status: Active Protocol: Document 06/01/22 16:00 DCW (Rec: 06/02/22 17:56 DCW [id number]) Special Tests Hip Special Tests Traction Test Results Significant pain relief with long-axis traction on L LE Straight Leg Raise Test Results Negative Scour Test Test Results Negative Piriformis Test Results R Piriformis tightness FREDIS Test Results Negative PT-OP-M Strength Start: 06/01/22 18:00 Freq: Status: Active Protocol: Document 06/01/22 16:00 DCW (Rec: 06/02/22 17:56 DCW [id number]) Hip Strength Hip Manual Muscle Testing Right Flexion (L2) 4+ Good+ Abduction 4+ Good+ Adduction 4+ Good+ External Rotation 4+ Good+ Internal Rotation 4+ Good+ Left Flexion (L2) 4 Good Abduction 4 Good Adduction 4 Good External Rotation 4 Good Internal Rotation 3+ Fair+ PT-OP-Q Treatments Start: 06/01/22 18:00 Freq: Status: Active Protocol: Document 06/23/22 16:45 DCW (Rec: 06/23/22 17:36 DCW [id number]) Gym Equipment Cable Column (Body Solid) Hip Adduction Resistance 50# Hip Abduction Resistance 40# Shuttle Recovery Hip Extension Details Hip Extension in Quadruped Resistance 25# Unilateral Squats Resistance 67# Shuttle Recovery Platform Stable Reps/Time 2x8 L, 2x10 R Bilateral Squats Resistance 112# Shuttle Recovery Platform Stable Reps/Time 1x6, 1x10 Shuttle Balance Red Comments Staggered weight shift Lateral weight shift Therapeutic Exercises Supine Exercises ITB stretch Supine Exercise Name ITB stretch Side bilateral Piriformis stretch Supine Exercise Name Figure-4 Side bilateral Standing Exercises Step-ups Standing Exercise Name Step-ups Side bilateral Resistance 6 L Manual Therapy Treatment Manual Traction Long-axis LE Details Long axis /c strap Body Position Supine PT-OP-T Assessment and Plan Start: 06/01/22 18:00 Freq: Status: Active Protocol: Document 06/23/22 16:45 DCW (Rec: 06/23/22 17:36 DCW [id number]) Physical Therapy Assessment Impairments Impairments Functional Activities, Functional Mobility,Pain,ROM, Soft Tissue Mobility,Strength Goals Two Impairment Pt unable to hike due to sudden intense hip pain with some LE movements Mcfp Goal (LTG) Pt to return to walking/hiking at least four miles without any instances of debilitating left hip pain LTG Duration 08/01/22 One Impairment Pt does not have an appropriate home exercise program Short Term Goal (STG) Pt to be independent and compliant with an appropriate HEP STG Duration 07/02/22 Assessment Summary Assessment While in hooklying today, pt's left adductors appeared to be having regular fasciculations , could be a sign of continuing weakness and instability of the hip joint, although could be caused by something as simple as decreased water intake. Pt making some improvements with hip strength, able to perform activities today with less fatigue. Physical Therapy Plan Frequency and Duration Frequency of Treatment 2x/Week Plan of Care Start Date 06/03/22 Plan of Care End Date 08/03/22 Therapeutic Interventions Therapeutic Interventions Balance Training,Gait Training ,Home Exercise Program,Joint Mobilizations,Manual Therapy, Neuromuscular Re-education, Patient/Caregiver Education, Self-Care/Home Management,Soft Tissue Mobilization, Therapeutic Activities, Therapeutic Exercises Next Visit Focus/Plan Next Note Type Treatment Note Next Visit Plan Hip strengthening, joint mobilizations, STM
--- NOTE | 2022-06-27 17:35 | PT.OTN ---
Current Diagnoses Pain in left hip (06/27/22) Pain in unspecified hip (06/27/22) Stiffness of right hip, not elsewhere classified (06/27/22) Stiffness of left hip, not elsewhere classified (06/27/22) Physical Therapy Treatment Note PT-OP-A Visit Information Start: 06/01/22 18:00 Freq: Status: Active Protocol: Document 06/27/22 16:45 DCW (Rec: 06/27/22 17:35 DCW [id number]) Out-Patient Physical Therapy Visit Information Visit Information Visit Type Treatment Note Visit Start Time 16:45 Visit Stop Time 17:30 Total Visit Minutes 45 Visit Number 5 Number of WATER PURIFICATION CHEMIST Visits 0 Evaluation Information Evaluation Date 06/01/22 PT-OP-B Current Condition Start: 06/01/22 18:00 Freq: Status: Active Protocol: Document 06/01/22 16:00 DCW (Rec: 06/02/22 17:56 DCW [id number]) Current Condition History of Current Condition Onset Date ~9 months Current Complaints L Hip feels it like it is going out with lateral movements History of Current Condition Pt is a 41 year old female reporting that she has been having left hip pain and instability since last summer. Notes that specifically with lateral movement or when first getting up, she gets a sharp pain in her hip and it feels like it is going out. Reports there is a big, sharp pain, and then I can't put any weight through it. Typically does a lot of hiking and walking, but is currently unable to walk even two miles . Admits that she has had hip and low back pain for years, but these symptoms are new. Notes she had been working with a massage therapy long- term to try to get her hip even, but stopped when covid began and has not gone back. Denies any falls. Treatment Goals Patient/Caregiver Goals Pt would like to return to hiking and walking without her hip giving out. PT-OP-C Subjective Start: 06/01/22 18:00 Freq: Status: Active Protocol: Document 06/27/22 16:45 DCW (Rec: 06/27/22 17:35 DCW [id number]) OP-PT Subjective Patient Comments Patient Comments Pt notes her hip actually held up pretty well this past weekend, although she notes that while she did her exercises, she didn't really get out to do any outdoor activities. PT-OP-F Manual Assessment Start: 06/01/22 18:00 Freq: Status: Active Protocol: Document 06/01/22 16:00 DCW (Rec: 06/02/22 17:56 DCW [id number]) Manual Assessments Joint Mobility Assessment Joint Mobility Assessment Bilateral hips have noticeable firm end-feels with internal and external rotation, right hip significantly limited in ER, left hip more limited with internal rotation PT-OP-K Range of Motion Start: 06/01/22 18:00 Freq: Status: Active Protocol: Document 06/01/22 16:00 DCW (Rec: 06/02/22 17:56 DCW [id number]) Hip Goniometric Range of Motion Hip Right Passive Hip ROM WFL No Testing Position Supine Internal Rotation 40 External Rotation 18 Left Passive Hip ROM WFL No Testing Position Supine Internal Rotation 31 External Rotation 43 PT-OP-L Special Tests Start: 06/01/22 18:00 Freq: Status: Active Protocol: Document 06/01/22 16:00 DCW (Rec: 06/02/22 17:56 DCW [id number]) Special Tests Hip Special Tests Traction Test Results Significant pain relief with long-axis traction on L LE Straight Leg Raise Test Results Negative Scour Test Test Results Negative Piriformis Test Results R Piriformis tightness FREDIS Test Results Negative PT-OP-M Strength Start: 06/01/22 18:00 Freq: Status: Active Protocol: Document 06/01/22 16:00 DCW (Rec: 06/02/22 17:56 DCW [id number]) Hip Strength Hip Manual Muscle Testing Right Flexion (L2) 4+ Good+ Abduction 4+ Good+ Adduction 4+ Good+ External Rotation 4+ Good+ Internal Rotation 4+ Good+ Left Flexion (L2) 4 Good Abduction 4 Good Adduction 4 Good External Rotation 4 Good Internal Rotation 3+ Fair+ PT-OP-Q Treatments Start: 06/01/22 18:00 Freq: Status: Active Protocol: Document 06/27/22 16:45 DCW (Rec: 06/27/22 17:35 DCW [id number]) Gym Equipment Cable Column (Body Solid) Hip Adduction Resistance 50# Hip Abduction Resistance 40# Shuttle Recovery Hip Extension Details Hip Extension in Quadruped Resistance 25# Unilateral Squats Resistance 67# Shuttle Recovery Platform Stable Reps/Time 2x8 L, 2x10 R Bilateral Squats Resistance 112# Shuttle Recovery Platform Stable Reps/Time 1x6, 1x8 Shuttle Balance Red Comments Staggered weight shift Lateral weight shift Therapeutic Exercises Supine Exercises ITB stretch Supine Exercise Name ITB stretch Side bilateral Piriformis stretch Supine Exercise Name Figure-4 Side bilateral Standing Exercises ER/IR Standing Exercise Name ER/IR half knee on stool Side bilateral Resistance Lv 2 Hip Extension Standing Exercise Name Hip Extension Side bilateral Resistance Green Other Exercises Resisted Ambulation Other Exercise Name Resisted side-stepping Resistance Green Manual Therapy Treatment Manual Traction Long-axis LE Details Long axis /c strap Body Position Supine PT-OP-T Assessment and Plan Start: 06/01/22 18:00 Freq: Status: Active Protocol: Document 06/27/22 16:45 DCW (Rec: 06/27/22 17:35 DCW [id number]) Physical Therapy Assessment Impairments Impairments Functional Activities, Functional Mobility,Pain,ROM, Soft Tissue Mobility,Strength Goals Two Impairment Pt unable to hike due to sudden intense hip pain with some LE movements Intermediate Goal (LTG) Pt to return to walking/hiking at least four miles without any instances of debilitating left hip pain LTG Duration 08/01/22 One Impairment Pt does not have an appropriate home exercise program Short Term Goal (STG) Pt to be independent and compliant with an appropriate HEP STG Duration 07/02/22 Assessment Summary Assessment Pt showing good progress with hip strength and improved joint stability. Continues to fatigue quickly, however much less than previously. Physical Therapy Plan Frequency and Duration Frequency of Treatment 2x/Week Plan of Care Start Date 06/03/22 Plan of Care End Date 08/03/22 Therapeutic Interventions Therapeutic Interventions Balance Training,Gait Training ,Home Exercise Program,Joint Mobilizations,Manual Therapy, Neuromuscular Re-education, Patient/Caregiver Education, Self-Care/Home Management,Soft Tissue Mobilization, Therapeutic Activities, Therapeutic Exercises Next Visit Focus/Plan Next Note Type Treatment Note Next Visit Plan Hip strengthening, joint mobilizations, STM
--- NOTE | 2022-06-29 17:29 | PT.OTN ---
Current Diagnoses Pain in left hip (06/29/22) Pain in unspecified hip (06/29/22) Stiffness of right hip, not elsewhere classified (06/29/22) Stiffness of left hip, not elsewhere classified (06/29/22) Physical Therapy Treatment Note PT-OP-A Visit Information Start: 06/01/22 18:00 Freq: Status: Active Protocol: Document 06/29/22 16:45 DCW (Rec: 06/29/22 17:29 DCW [id number]) Out-Patient Physical Therapy Visit Information Visit Information Visit Type Treatment Note Visit Start Time 16:45 Visit Stop Time 17:30 Total Visit Minutes 45 Visit Number 6 Number of MICROFILMER Visits 0 Evaluation Information Evaluation Date 06/01/22 PT-OP-B Current Condition Start: 06/01/22 18:00 Freq: Status: Active Protocol: Document 06/01/22 16:00 DCW (Rec: 06/02/22 17:56 DCW [id number]) Current Condition History of Current Condition Onset Date ~9 months Current Complaints L Hip feels it like it is going out with lateral movements History of Current Condition Pt is a 41 year old female reporting that she has been having left hip pain and instability since last summer. Notes that specifically with lateral movement or when first getting up, she gets a sharp pain in her hip and it feels like it is going out. Reports there is a big, sharp pain, and then I can't put any weight through it. Typically does a lot of hiking and walking, but is currently unable to walk even two miles . Admits that she has had hip and low back pain for years, but these symptoms are new. Notes she had been working with a massage therapy long- term to try to get her hip even, but stopped when covid began and has not gone back. Denies any falls. Treatment Goals Patient/Caregiver Goals Pt would like to return to hiking and walking without her hip giving out. PT-OP-C Subjective Start: 06/01/22 18:00 Freq: Status: Active Protocol: Document 06/29/22 16:45 DCW (Rec: 06/29/22 17:29 DCW [id number]) OP-PT Subjective Patient Comments Patient Comments I have not been having any pain at all in my hip lately. It's awesome. PT-OP-F Manual Assessment Start: 06/01/22 18:00 Freq: Status: Active Protocol: Document 06/01/22 16:00 DCW (Rec: 06/02/22 17:56 DCW [id number]) Manual Assessments Joint Mobility Assessment Joint Mobility Assessment Bilateral hips have noticeable firm end-feels with internal and external rotation, right hip significantly limited in ER, left hip more limited with internal rotation PT-OP-K Range of Motion Start: 06/01/22 18:00 Freq: Status: Active Protocol: Document 06/01/22 16:00 DCW (Rec: 06/02/22 17:56 DCW [id number]) Hip Goniometric Range of Motion Hip Right Passive Hip ROM WFL No Testing Position Supine Internal Rotation 40 External Rotation 18 Left Passive Hip ROM WFL No Testing Position Supine Internal Rotation 31 External Rotation 43 PT-OP-L Special Tests Start: 06/01/22 18:00 Freq: Status: Active Protocol: Document 06/01/22 16:00 DCW (Rec: 06/02/22 17:56 DCW [id number]) Special Tests Hip Special Tests Traction Test Results Significant pain relief with long-axis traction on L LE Straight Leg Raise Test Results Negative Scour Test Test Results Negative Piriformis Test Results R Piriformis tightness FREDIS Test Results Negative PT-OP-M Strength Start: 06/01/22 18:00 Freq: Status: Active Protocol: Document 06/01/22 16:00 DCW (Rec: 06/02/22 17:56 DCW [id number]) Hip Strength Hip Manual Muscle Testing Right Flexion (L2) 4+ Good+ Abduction 4+ Good+ Adduction 4+ Good+ External Rotation 4+ Good+ Internal Rotation 4+ Good+ Left Flexion (L2) 4 Good Abduction 4 Good Adduction 4 Good External Rotation 4 Good Internal Rotation 3+ Fair+ PT-OP-Q Treatments Start: 06/01/22 18:00 Freq: Status: Active Protocol: Document 06/29/22 16:45 DCW (Rec: 06/29/22 17:29 DCW [id number]) Gym Equipment Cable Column (Body Solid) Hip Adduction Resistance 50# Hip Abduction Resistance 40# Shuttle Recovery Plyometric Hopping Resistance 37# Hip Extension Details Hip Extension in Quadruped Resistance 25# Unilateral Squats Resistance 67# Shuttle Recovery Platform Stable Reps/Time 1x15 Bilateral Squats Resistance 112# Shuttle Recovery Platform Stable Reps/Time 1x10 Shuttle Balance Red Comments Staggered weight shift Lateral weight shift Therapeutic Exercises Standing Exercises Hip Extension Standing Exercise Name Hip Extension Side bilateral Resistance Green Other Exercises Resisted Ambulation Other Exercise Name Resisted side-stepping Resistance Green Manual Therapy Treatment Manual Traction Long-axis LE Details Long axis /c strap Body Position Supine PT-OP-T Assessment and Plan Start: 06/01/22 18:00 Freq: Status: Active Protocol: Document 06/29/22 16:45 DCW (Rec: 06/29/22 17:29 DCW [id number]) Physical Therapy Assessment Impairments Impairments Functional Activities, Functional Mobility,Pain,ROM, Soft Tissue Mobility,Strength Goals Two Impairment Pt unable to hike due to sudden intense hip pain with some LE movements Prison Goal (LTG) Pt to return to walking/hiking at least four miles without any instances of debilitating left hip pain LTG Duration 08/01/22 One Impairment Pt does not have an appropriate home exercise program Short Term Goal (STG) Pt to be independent and compliant with an appropriate HEP STG Duration 07/02/22 Assessment Summary Assessment Pt progressing very well, has not been experiencing any increased hip pain recently. Will likely benefit from a few more PT sessions in order to increase strength and stability to return to normal functional mobility. Physical Therapy Plan Frequency and Duration Frequency of Treatment 2x/Week Plan of Care Start Date 06/03/22 Plan of Care End Date 08/03/22 Therapeutic Interventions Therapeutic Interventions Balance Training,Gait Training ,Home Exercise Program,Joint Mobilizations,Manual Therapy, Neuromuscular Re-education, Patient/Caregiver Education, Self-Care/Home Management,Soft Tissue Mobilization, Therapeutic Activities, Therapeutic Exercises Next Visit Focus/Plan Next Note Type Treatment Note Next Visit Plan Hip strengthening, joint mobilizations, STM
--- NOTE | 2022-07-06 17:35 | PT.OTN ---
Current Diagnoses Pain in left hip (07/06/22) Pain in unspecified hip (07/06/22) Stiffness of right hip, not elsewhere classified (07/06/22) Stiffness of left hip, not elsewhere classified (07/06/22) Physical Therapy Treatment Note PT-OP-A Visit Information Start: 06/01/22 18:00 Freq: Status: Active Protocol: Document 07/06/22 16:49 DCW (Rec: 07/06/22 17:35 DCW [id number]) Out-Patient Physical Therapy Visit Information Visit Information Visit Type Treatment Note Visit Start Time 16:49 Visit Stop Time 17:30 Total Visit Minutes 41 Visit Number 7 Number of RADAR REPAIRER Visits 0 Evaluation Information Evaluation Date 06/01/22 PT-OP-B Current Condition Start: 06/01/22 18:00 Freq: Status: Active Protocol: Document 06/01/22 16:00 DCW (Rec: 06/02/22 17:56 DCW [id number]) Current Condition History of Current Condition Onset Date ~9 months Current Complaints L Hip feels it like it is going out with lateral movements History of Current Condition Pt is a 41 year old female reporting that she has been having left hip pain and instability since last summer. Notes that specifically with lateral movement or when first getting up, she gets a sharp pain in her hip and it feels like it is going out. Reports there is a big, sharp pain, and then I can't put any weight through it. Typically does a lot of hiking and walking, but is currently unable to walk even two miles . Admits that she has had hip and low back pain for years, but these symptoms are new. Notes she had been working with a massage therapy long- term to try to get her hip even, but stopped when covid began and has not gone back. Denies any falls. Treatment Goals Patient/Caregiver Goals Pt would like to return to hiking and walking without her hip giving out. PT-OP-C Subjective Start: 06/01/22 18:00 Freq: Status: Active Protocol: Document 07/06/22 16:49 DCW (Rec: 07/06/22 17:35 DCW [id number]) OP-PT Subjective Patient Comments Patient Comments It's been really good. It's feeling stronger and stronger. PT-OP-F Manual Assessment Start: 06/01/22 18:00 Freq: Status: Active Protocol: Document 06/01/22 16:00 DCW (Rec: 06/02/22 17:56 DCW [id number]) Manual Assessments Joint Mobility Assessment Joint Mobility Assessment Bilateral hips have noticeable firm end-feels with internal and external rotation, right hip significantly limited in ER, left hip more limited with internal rotation PT-OP-K Range of Motion Start: 06/01/22 18:00 Freq: Status: Active Protocol: Document 06/01/22 16:00 DCW (Rec: 06/02/22 17:56 DCW [id number]) Hip Goniometric Range of Motion Hip Right Passive Hip ROM WFL No Testing Position Supine Internal Rotation 40 External Rotation 18 Left Passive Hip ROM WFL No Testing Position Supine Internal Rotation 31 External Rotation 43 PT-OP-L Special Tests Start: 06/01/22 18:00 Freq: Status: Active Protocol: Document 06/01/22 16:00 DCW (Rec: 06/02/22 17:56 DCW [id number]) Special Tests Hip Special Tests Traction Test Results Significant pain relief with long-axis traction on L LE Straight Leg Raise Test Results Negative Scour Test Test Results Negative Piriformis Test Results R Piriformis tightness FREDIS Test Results Negative PT-OP-M Strength Start: 06/01/22 18:00 Freq: Status: Active Protocol: Document 06/01/22 16:00 DCW (Rec: 06/02/22 17:56 DCW [id number]) Hip Strength Hip Manual Muscle Testing Right Flexion (L2) 4+ Good+ Abduction 4+ Good+ Adduction 4+ Good+ External Rotation 4+ Good+ Internal Rotation 4+ Good+ Left Flexion (L2) 4 Good Abduction 4 Good Adduction 4 Good External Rotation 4 Good Internal Rotation 3+ Fair+ PT-OP-Q Treatments Start: 06/01/22 18:00 Freq: Status: Active Protocol: Document 07/06/22 16:49 DCW (Rec: 07/06/22 17:35 DCW [id number]) Gym Equipment Cable Column (Body Solid) Hip Adduction Resistance 50# Hip Abduction Resistance 40# Shuttle Recovery Plyometric Hopping Resistance 37# Hip Extension Details Hip Extension in Quadruped Resistance 25# Unilateral Squats Resistance 75# Shuttle Recovery Platform Stable Reps/Time 1x15 Bilateral Squats Resistance 125# Shuttle Recovery Platform Stable Reps/Time 1x10 Shuttle Balance Red Comments Staggered weight shift Lateral weight shift Therapeutic Exercises Supine Exercises ITB stretch Supine Exercise Name ITB stretch Side bilateral Piriformis stretch Supine Exercise Name Figure-4 Side bilateral Standing Exercises Lunge Standing Exercise Name BOSU Lunge Side bilateral Hip Extension Standing Exercise Name Hip Extension Side bilateral Resistance Green Other Exercises Resisted Ambulation Other Exercise Name Resisted side-stepping Resistance Green Manual Therapy Treatment Manual Traction Long-axis LE Details Long axis /c strap Body Position Supine PT-OP-T Assessment and Plan Start: 06/01/22 18:00 Freq: Status: Active Protocol: Document 07/06/22 16:49 DCW (Rec: 07/06/22 17:35 DCW [id number]) Physical Therapy Assessment Impairments Impairments Functional Activities, Functional Mobility,Pain,ROM, Soft Tissue Mobility,Strength Goals Two Impairment Pt unable to hike due to sudden intense hip pain with some LE movements Set Up Operator Goal (LTG) Pt to return to walking/hiking at least four miles without any instances of debilitating left hip pain LTG Duration 08/01/22 One Impairment Pt does not have an appropriate home exercise program Short Term Goal (STG) Pt to be independent and compliant with an appropriate HEP STG Duration 07/02/22 Assessment Summary Assessment Pt showing improved stability and strength in hip, experiencing decreased frequency and severity of spasm through adductors. Physical Therapy Plan Frequency and Duration Frequency of Treatment 2x/Week Plan of Care Start Date 06/03/22 Plan of Care End Date 08/03/22 Therapeutic Interventions Therapeutic Interventions Balance Training,Gait Training ,Home Exercise Program,Joint Mobilizations,Manual Therapy, Neuromuscular Re-education, Patient/Caregiver Education, Self-Care/Home Management,Soft Tissue Mobilization, Therapeutic Activities, Therapeutic Exercises Next Visit Focus/Plan Next Note Type Treatment Note Next Visit Plan Hip strengthening, joint mobilizations, STM
--- NOTE | 2022-07-08 16:51 | PT.OTN ---
Current Diagnoses Pain in left hip (07/08/22) Pain in unspecified hip (07/08/22) Stiffness of right hip, not elsewhere classified (07/08/22) Stiffness of left hip, not elsewhere classified (07/08/22) Physical Therapy Treatment Note PT-OP-A Visit Information Start: 06/01/22 18:00 Freq: Status: Active Protocol: Document 07/08/22 16:00 DCW (Rec: 07/08/22 16:51 DCW [id number]) Out-Patient Physical Therapy Visit Information Visit Information Visit Type Treatment Note Visit Start Time 16:00 Visit Stop Time 16:45 Total Visit Minutes 45 Visit Number 8 Number of FOLDING MACHINE OPERATOR Visits 0 Evaluation Information Evaluation Date 06/01/22 PT-OP-B Current Condition Start: 06/01/22 18:00 Freq: Status: Active Protocol: Document 06/01/22 16:00 DCW (Rec: 06/02/22 17:56 DCW [id number]) Current Condition History of Current Condition Onset Date ~9 months Current Complaints L Hip feels it like it is going out with lateral movements History of Current Condition Pt is a 41 year old female reporting that she has been having left hip pain and instability since last summer. Notes that specifically with lateral movement or when first getting up, she gets a sharp pain in her hip and it feels like it is going out. Reports there is a big, sharp pain, and then I can't put any weight through it. Typically does a lot of hiking and walking, but is currently unable to walk even two miles . Admits that she has had hip and low back pain for years, but these symptoms are new. Notes she had been working with a massage therapy long- term to try to get her hip even, but stopped when covid began and has not gone back. Denies any falls. Treatment Goals Patient/Caregiver Goals Pt would like to return to hiking and walking without her hip giving out. PT-OP-C Subjective Start: 06/01/22 18:00 Freq: Status: Active Protocol: Document 07/08/22 16:00 DCW (Rec: 07/08/22 16:51 DCW [id number]) OP-PT Subjective Patient Comments Patient Comments After a car ride to [place] and back, I did have one instance of that same old sensation of my hip giving out , but that's been the only time recently. PT-OP-F Manual Assessment Start: 06/01/22 18:00 Freq: Status: Active Protocol: Document 06/01/22 16:00 DCW (Rec: 06/02/22 17:56 DCW [id number]) Manual Assessments Joint Mobility Assessment Joint Mobility Assessment Bilateral hips have noticeable firm end-feels with internal and external rotation, right hip significantly limited in ER, left hip more limited with internal rotation PT-OP-K Range of Motion Start: 06/01/22 18:00 Freq: Status: Active Protocol: Document 06/01/22 16:00 DCW (Rec: 06/02/22 17:56 DCW [id number]) Hip Goniometric Range of Motion Hip Right Passive Hip ROM WFL No Testing Position Supine Internal Rotation 40 External Rotation 18 Left Passive Hip ROM WFL No Testing Position Supine Internal Rotation 31 External Rotation 43 PT-OP-L Special Tests Start: 06/01/22 18:00 Freq: Status: Active Protocol: Document 06/01/22 16:00 DCW (Rec: 06/02/22 17:56 DCW [id number]) Special Tests Hip Special Tests Traction Test Results Significant pain relief with long-axis traction on L LE Straight Leg Raise Test Results Negative Scour Test Test Results Negative Piriformis Test Results R Piriformis tightness FREDIS Test Results Negative PT-OP-M Strength Start: 06/01/22 18:00 Freq: Status: Active Protocol: Document 06/01/22 16:00 DCW (Rec: 06/02/22 17:56 DCW [id number]) Hip Strength Hip Manual Muscle Testing Right Flexion (L2) 4+ Good+ Abduction 4+ Good+ Adduction 4+ Good+ External Rotation 4+ Good+ Internal Rotation 4+ Good+ Left Flexion (L2) 4 Good Abduction 4 Good Adduction 4 Good External Rotation 4 Good Internal Rotation 3+ Fair+ PT-OP-Q Treatments Start: 06/01/22 18:00 Freq: Status: Active Protocol: Document 07/08/22 16:00 DCW (Rec: 07/08/22 16:51 DCW [id number]) Gym Equipment Cable Column (Body Solid) Hip Adduction Resistance 50# Hip Abduction Resistance 40# Shuttle Recovery Hip Extension Details Hip Extension in Quadruped Resistance 25# Unilateral Squats Resistance 75# Shuttle Recovery Platform Stable Reps/Time 2x10 Bilateral Squats Resistance 125# Shuttle Recovery Platform Stable Reps/Time 2x10 Shuttle Balance Red Comments Staggered weight shift Lateral weight shift Therapeutic Exercises Standing Exercises Lunge Standing Exercise Name BOSU Lunge Side bilateral Hip Extension Standing Exercise Name Hip Extension Side bilateral Resistance Blue Other Exercises Resisted Ambulation Other Exercise Name Resisted side-stepping Resistance Blue Manual Therapy Treatment Soft Tissue Mobilization Hip Flexor Body Location L hoip flexor Mobilization Type Sustained Pressure,Trigger Point Release Intensity/Depth Superficial Body Position Hooklying Manual Traction Long-axis LE Details Long axis /c strap Body Position Supine PT-OP-T Assessment and Plan Start: 06/01/22 18:00 Freq: Status: Active Protocol: Document 07/08/22 16:00 DCW (Rec: 07/08/22 16:51 DCW [id number]) Physical Therapy Assessment Impairments Impairments Functional Activities, Functional Mobility,Pain,ROM, Soft Tissue Mobility,Strength Goals Two Impairment Pt unable to hike due to sudden intense hip pain with some LE movements Jail Goal (LTG) Pt to return to walking/hiking at least four miles without any instances of debilitating left hip pain LTG Duration 08/01/22 One Impairment Pt does not have an appropriate home exercise program Short Term Goal (STG) Pt to be independent and compliant with an appropriate HEP STG Duration 07/02/22 Assessment Summary Assessment Pt continues to show very good progress with overall improved function, not experiencing as frequent or as severe hip pain. Physical Therapy Plan Frequency and Duration Frequency of Treatment 2x/Week Plan of Care Start Date 06/03/22 Plan of Care End Date 08/03/22 Therapeutic Interventions Therapeutic Interventions Balance Training,Gait Training ,Home Exercise Program,Joint Mobilizations,Manual Therapy, Neuromuscular Re-education, Patient/Caregiver Education, Self-Care/Home Management,Soft Tissue Mobilization, Therapeutic Activities, Therapeutic Exercises Next Visit Focus/Plan Next Note Type Treatment Note Next Visit Plan Hip strengthening, joint mobilizations, STM
--- NOTE | 2022-07-18 16:12 | PT.OTN ---
Current Diagnoses Pain in left hip (07/18/22) Pain in unspecified hip (07/18/22) Stiffness of right hip, not elsewhere classified (07/18/22) Stiffness of left hip, not elsewhere classified (07/18/22) Physical Therapy Treatment Note PT-OP-A Visit Information Start: 06/01/22 18:00 Freq: Status: Active Protocol: Document 07/18/22 15:27 ES (Rec: 07/18/22 16:12 ES [id number]) Out-Patient Physical Therapy Visit Information Visit Information Visit Type Treatment Note Visit Start Time 15:27 Visit Stop Time 16:07 Total Visit Minutes 40 Visit Number 9 Number of CLAIMS ASSOCIATE Visits 0 PT-OP-B Current Condition Start: 06/01/22 18:00 Freq: Status: Active Protocol: Document 06/01/22 16:00 DCW (Rec: 06/02/22 17:56 DCW [id number]) Current Condition History of Current Condition Onset Date ~9 months Current Complaints L Hip feels it like it is going out with lateral movements History of Current Condition Pt is a 41 year old female reporting that she has been having left hip pain and instability since last summer. Notes that specifically with lateral movement or when first getting up, she gets a sharp pain in her hip and it feels like it is going out. Reports there is a big, sharp pain, and then I can't put any weight through it. Typically does a lot of hiking and walking, but is currently unable to walk even two miles . Admits that she has had hip and low back pain for years, but these symptoms are new. Notes she had been working with a massage therapy long- term to try to get her hip even, but stopped when covid began and has not gone back. Denies any falls. Treatment Goals Patient/Caregiver Goals Pt would like to return to hiking and walking without her hip giving out. PT-OP-C Subjective Start: 06/01/22 18:00 Freq: Status: Active Protocol: Document 07/18/22 15:27 ES (Rec: 07/18/22 16:12 ES [id number]) OP-PT Subjective Patient Comments Patient Comments Patient reported she hasn't been as consistent with exercises and PT appts and can tell. Has been having the sensation of her hip going out when standing on one leg while putting shoes/socks on or stepping sideways. Has been able to hike without pain for a couple miles (~1 hour). PT-OP-F Manual Assessment Start: 06/01/22 18:00 Freq: Status: Active Protocol: Document 06/01/22 16:00 DCW (Rec: 06/02/22 17:56 DCW [id number]) Manual Assessments Joint Mobility Assessment Joint Mobility Assessment Bilateral hips have noticeable firm end-feels with internal and external rotation, right hip significantly limited in ER, left hip more limited with internal rotation PT-OP-K Range of Motion Start: 06/01/22 18:00 Freq: Status: Active Protocol: Document 06/01/22 16:00 DCW (Rec: 06/02/22 17:56 DCW [id number]) Hip Goniometric Range of Motion Hip Right Passive Hip ROM WFL No Testing Position Supine Internal Rotation 40 External Rotation 18 Left Passive Hip ROM WFL No Testing Position Supine Internal Rotation 31 External Rotation 43 PT-OP-L Special Tests Start: 06/01/22 18:00 Freq: Status: Active Protocol: Document 06/01/22 16:00 DCW (Rec: 06/02/22 17:56 DCW [id number]) Special Tests Hip Special Tests Traction Test Results Significant pain relief with long-axis traction on L LE Straight Leg Raise Test Results Negative Scour Test Test Results Negative Piriformis Test Results R Piriformis tightness FREDIS Test Results Negative PT-OP-M Strength Start: 06/01/22 18:00 Freq: Status: Active Protocol: Document 06/01/22 16:00 DCW (Rec: 06/02/22 17:56 DCW [id number]) Hip Strength Hip Manual Muscle Testing Right Flexion (L2) 4+ Good+ Abduction 4+ Good+ Adduction 4+ Good+ External Rotation 4+ Good+ Internal Rotation 4+ Good+ Left Flexion (L2) 4 Good Abduction 4 Good Adduction 4 Good External Rotation 4 Good Internal Rotation 3+ Fair+ PT-OP-Q Treatments Start: 06/01/22 18:00 Freq: Status: Active Protocol: Document 07/18/22 15:27 ES (Rec: 07/18/22 16:12 ES [id number]) Gym Equipment Cable Column (Body Solid) Hip Adduction Resistance 50# Reps/Time 2x10 Hip Abduction Resistance 40# Reps/Time 2x10 Shuttle Recovery Hip Extension Details Hip Extension in Quadruped Resistance 25# Reps/Time 2x10 Unilateral Squats Resistance 75# Shuttle Recovery Platform Stable Reps/Time 2x10 Bilateral Squats Resistance 125 Shuttle Recovery Platform Stable Reps/Time 2x10 Therapeutic Exercises Supine Exercises Piriformis stretch Supine Exercise Name Figure-4 Side bilateral Standing Exercises Lunge Standing Exercise Name BOSU Lunge Side bilateral Hip Extension Standing Exercise Name Hip Extension Side bilateral Resistance Blue Other Exercises Monster walks Other Exercise Name Forward/backward diagonal stepping Resistance Blue Resisted Ambulation Other Exercise Name Resisted side-stepping Resistance Blue PT-OP-T Assessment and Plan Start: 06/01/22 18:00 Freq: Status: Active Protocol: Document 07/18/22 15:27 ES (Rec: 07/18/22 16:12 ES [id number]) Physical Therapy Assessment Goals Two Impairment Pt unable to hike due to sudden intense hip pain with some LE movements [facility]entiary Goal (LTG) Pt to return to walking/hiking at least four miles without any instances of debilitating left hip pain LTG Duration 08/01/22 One Impairment Pt does not have an appropriate home exercise program Short Term Goal (STG) Pt to be independent and compliant with an appropriate HEP STG Duration 07/02/22 Progress Towards Goals Progress Towards Goals Progressing Toward Goals Progress Comments Hiking 2-3 miles without problem. Doing HEP 3-4x/week. Assessment Summary Assessment Patient continues to make good progress, tolerating increased resistance and exercise intensity without pain. She was fatigued with additional hip strengthening/ stabilization ex's but able to maintain good alignment.
--- NOTE | 2022-08-02 16:27 | PT.OTN ---
Current Diagnoses Pain in left hip (08/02/22) Pain in unspecified hip (08/02/22) Stiffness of right hip, not elsewhere classified (08/02/22) Stiffness of left hip, not elsewhere classified (08/02/22) Physical Therapy Treatment Note PT-OP-A Visit Information Start: 06/01/22 18:00 Freq: Status: Active Protocol: Document 08/02/22 15:48 DCW (Rec: 08/02/22 16:26 DCW [id number]) Out-Patient Physical Therapy Visit Information Visit Information Visit Type Progress Note Visit Start Time 15:48 Visit Stop Time 16:30 Total Visit Minutes 42 Visit Number 10 Number of AIR ANALYSIS TECHNICIAN Visits 0 Evaluation Information Evaluation Date 06/01/22 PT-OP-B Current Condition Start: 06/01/22 18:00 Freq: Status: Active Protocol: Document 06/01/22 16:00 DCW (Rec: 06/02/22 17:56 DCW [id number]) Current Condition History of Current Condition Onset Date ~9 months Current Complaints L Hip feels it like it is going out with lateral movements History of Current Condition Pt is a 41 year old female reporting that she has been having left hip pain and instability since last summer. Notes that specifically with lateral movement or when first getting up, she gets a sharp pain in her hip and it feels like it is going out. Reports there is a big, sharp pain, and then I can't put any weight through it. Typically does a lot of hiking and walking, but is currently unable to walk even two miles . Admits that she has had hip and low back pain for years, but these symptoms are new. Notes she had been working with a massage therapy long- term to try to get her hip even, but stopped when covid began and has not gone back. Denies any falls. Treatment Goals Patient/Caregiver Goals Pt would like to return to hiking and walking without her hip giving out. PT-OP-C Subjective Start: 06/01/22 18:00 Freq: Status: Active Protocol: Document 08/02/22 15:48 DCW (Rec: 08/02/22 16:26 DCW [id number]) OP-PT Subjective Patient Comments Patient Comments Pt admits she spent much of the day sitting at the computer at work, so she is feeling more stiff than she has been recently. PT-OP-F Manual Assessment Start: 06/01/22 18:00 Freq: Status: Active Protocol: Document 08/02/22 15:48 DCW (Rec: 08/02/22 16:00 DCW [id number]) Manual Assessments Joint Mobility Assessment Joint Mobility Assessment Hip end feels currently WNL, equal ROM bilaterally with both internal and external range of motion. PT-OP-K Range of Motion Start: 06/01/22 18:00 Freq: Status: Active Protocol: Document 08/02/22 15:48 DCW (Rec: 08/02/22 16:00 DCW [id number]) Hip Goniometric Range of Motion Hip Right Passive Hip ROM WFL No Testing Position Supine Internal Rotation 50 External Rotation 45 Left Passive Hip ROM WFL No Testing Position Supine Internal Rotation 50 External Rotation 45 PT-OP-L Special Tests Start: 06/01/22 18:00 Freq: Status: Active Protocol: Document 08/02/22 15:48 DCW (Rec: 08/02/22 16:00 DCW [id number]) Special Tests Hip Special Tests Traction Test Results Negative Straight Leg Raise Test Results Negative Scour Test Test Results Negative Piriformis Test Results Mild R Piriformis tightness FREDIS Test Results Negative PT-OP-M Strength Start: 06/01/22 18:00 Freq: Status: Active Protocol: Document 08/02/22 15:48 DCW (Rec: 08/02/22 16:00 DCW [id number]) Hip Strength Hip Manual Muscle Testing Right Flexion (L2) 5 Normal Abduction 4+ Good+ Adduction 5 Normal External Rotation 5 Normal Internal Rotation 5 Normal Left Flexion (L2) 5 Normal Abduction 4+ Good+ Adduction 5 Normal External Rotation 4+ Good+ Internal Rotation 4 Good PT-OP-Q Treatments Start: 06/01/22 18:00 Freq: Status: Active Protocol: Document 08/02/22 15:48 DCW (Rec: 08/02/22 16:26 DCW [id number]) Gym Equipment Cable Column (Body Solid) Hip Adduction Resistance 50# Reps/Time 2x10 Hip Abduction Resistance 40# Reps/Time 2x10 Shuttle Recovery Plyometric Hopping Resistance 37# Reps/Time x20 Hip Extension Details Hip Extension in Quadruped Resistance 25# Reps/Time 2x10 Unilateral Squats Resistance 75# Shuttle Recovery Platform Stable Reps/Time x20 Bilateral Squats Resistance 125# Shuttle Recovery Platform Stable Reps/Time x20 Shuttle Balance Red Comments Staggered weight shift Lateral weight shift Therapeutic Exercises Standing Exercises Lunge Standing Exercise Name SAV [place] bilateral PT-OP-T Assessment and Plan Start: 06/01/22 18:00 Freq: Status: Active Protocol: Document 08/02/22 15:48 DCW (Rec: 08/02/22 16:26 DCW [id number]) Physical Therapy Assessment Impairments Impairments Functional Activities, Functional Mobility,Pain,ROM, Soft Tissue Mobility,Strength Goals Two Impairment Pt unable to hike due to sudden intense hip pain with some LE movements Retirement Goal (LTG) Pt to return to walking/hiking at least four miles without any instances of debilitating left hip pain LTG Duration 08/22/22 One Impairment Pt does not have an appropriate home exercise program Short Term Goal (STG) Pt to be independent and compliant with an appropriate HEP STG Duration 08/22/22 Assessment Summary Assessment Pt making very good progress, largely is approaching all goals, would benefit from 3-4 more visits in order to ensure she properly incorporates HEP and does well with decreased frequency prior to discharge. Physical Therapy Plan Frequency and Duration Frequency of Treatment 1-2x/week Plan of Care Start Date 08/02/22 Plan of Care End Date 08/26/22 Therapeutic Interventions Therapeutic Interventions Balance Training,Gait Training ,Home Exercise Program,Joint Mobilizations,Manual Therapy, Neuromuscular Re-education, Patient/Caregiver Education, Self-Care/Home Management,Soft Tissue Mobilization, Therapeutic Activities, Therapeutic Exercises Next Visit Focus/Plan Next Note Type Treatment Note Next Visit Plan Hip strengthening, joint mobilizations, STM
--- NOTE | 2022-08-10 16:28 | PT.OTN ---
Current Diagnoses Pain in left hip (08/10/22) Pain in unspecified hip (08/10/22) Stiffness of right hip, not elsewhere classified (08/10/22) Stiffness of left hip, not elsewhere classified (08/10/22) Physical Therapy Treatment Note PT-OP-A Visit Information Start: 06/01/22 18:00 Freq: Status: Active Protocol: Document 08/10/22 15:45 DCW (Rec: 08/10/22 16:28 DCW [id number]) Out-Patient Physical Therapy Visit Information Visit Information Visit Type Treatment Note Visit Start Time 15:45 Visit Stop Time 16:30 Total Visit Minutes 45 Visit Number 11 Number of ANIMATION ARTIST Visits 0 Evaluation Information Evaluation Date 06/01/22 PT-OP-B Current Condition Start: 06/01/22 18:00 Freq: Status: Active Protocol: Document 06/01/22 16:00 DCW (Rec: 06/02/22 17:56 DCW [id number]) Current Condition History of Current Condition Onset Date ~9 months Current Complaints L Hip feels it like it is going out with lateral movements History of Current Condition Pt is a 41 year old female reporting that she has been having left hip pain and instability since last summer. Notes that specifically with lateral movement or when first getting up, she gets a sharp pain in her hip and it feels like it is going out. Reports there is a big, sharp pain, and then I can't put any weight through it. Typically does a lot of hiking and walking, but is currently unable to walk even two miles . Admits that she has had hip and low back pain for years, but these symptoms are new. Notes she had been working with a massage therapy long- term to try to get her hip even, but stopped when covid began and has not gone back. Denies any falls. Treatment Goals Patient/Caregiver Goals Pt would like to return to hiking and walking without her hip giving out. PT-OP-C Subjective Start: 06/01/22 18:00 Freq: Status: Active Protocol: Document 08/10/22 15:45 DCW (Rec: 08/10/22 16:28 DCW [id number]) OP-PT Subjective Patient Comments Patient Comments I'm having a little more trouble with my (left) knee today. PT-OP-F Manual Assessment Start: 06/01/22 18:00 Freq: Status: Active Protocol: Document 08/02/22 15:48 DCW (Rec: 08/02/22 16:00 DCW [id number]) Manual Assessments Joint Mobility Assessment Joint Mobility Assessment Hip end feels currently WNL, equal ROM bilaterally with both internal and external range of motion. PT-OP-K Range of Motion Start: 06/01/22 18:00 Freq: Status: Active Protocol: Document 08/02/22 15:48 DCW (Rec: 08/02/22 16:00 DCW [id number]) Hip Goniometric Range of Motion Hip Right Passive Hip ROM WFL No Testing Position Supine Internal Rotation 50 External Rotation 45 Left Passive Hip ROM WFL No Testing Position Supine Internal Rotation 50 External Rotation 45 PT-OP-L Special Tests Start: 06/01/22 18:00 Freq: Status: Active Protocol: Document 08/02/22 15:48 DCW (Rec: 08/02/22 16:00 DCW [id number]) Special Tests Hip Special Tests Traction Test Results Negative Straight Leg Raise Test Results Negative Scour Test Test Results Negative Piriformis Test Results Mild R Piriformis tightness FREDIS Test Results Negative PT-OP-M Strength Start: 06/01/22 18:00 Freq: Status: Active Protocol: Document 08/02/22 15:48 DCW (Rec: 08/02/22 16:00 DCW [id number]) Hip Strength Hip Manual Muscle Testing Right Flexion (L2) 5 Normal Abduction 4+ Good+ Adduction 5 Normal External Rotation 5 Normal Internal Rotation 5 Normal Left Flexion (L2) 5 Normal Abduction 4+ Good+ Adduction 5 Normal External Rotation 4+ Good+ Internal Rotation 4 Good PT-OP-Q Treatments Start: 06/01/22 18:00 Freq: Status: Active Protocol: Document 08/10/22 15:45 DCW (Rec: 08/10/22 16:28 DCW [id number]) Gym Equipment Cable Column (Body Solid) Hip Adduction Resistance 50# Reps/Time 2x10 Hip Abduction Resistance 40# Reps/Time 2x10 Shuttle Recovery Plyometric Hopping Details Unilateral hopping Resistance 37# Reps/Time x20 Hip Extension Details Hip Extension in Quadruped Resistance 25# Reps/Time 2x10 Unilateral Squats Resistance 75# Shuttle Recovery Platform Stable Reps/Time x20 Bilateral Squats Resistance 125# Shuttle Recovery Platform Stable Reps/Time x20 Shuttle Balance Red Comments Staggered weight shift Lateral weight shift Therapeutic Ball LTR Exercise Details LTR Ball Size/Color Red - 55 cm Body Position Supine LE Lifts Exercise Details B LE lifting ball between legs Ball Size/Color Red - 55 cm Body Position Supine Bridging Exercise Details Bridging, then added HS curls Ball Size/Color Red - 55 cm Body Position Supine Therapeutic Exercises Standing Exercises SLS Standing Exercise Name SLS on airex pad Side bilateral Lunge Standing Exercise Name BOSU Lunge Side bilateral PT-OP-T Assessment and Plan Start: 06/01/22 18:00 Freq: Status: Active Protocol: Document 08/10/22 15:45 DCW (Rec: 08/10/22 16:28 DCW [id number]) Physical Therapy Assessment Impairments Impairments Functional Activities, Functional Mobility,Pain,ROM, Soft Tissue Mobility,Strength Goals Two Impairment Pt unable to hike due to sudden intense hip pain with some LE movements Nursing Home Goal (LTG) Pt to return to walking/hiking at least four miles without any instances of debilitating left hip pain LTG Duration 08/22/22 One Impairment Pt does not have an appropriate home exercise program Short Term Goal (STG) Pt to be independent and compliant with an appropriate HEP STG Duration 08/22/22 Assessment Summary Assessment Pt feeling more comfortable with her HEP, interested today in learning some T-ball exercises she could perform at home for hips/core strengthening. Also planning on looking into purchasing BOSU for home use. Physical Therapy Plan Frequency and Duration Frequency of Treatment 1-2x/week Plan of Care Start Date 08/02/22 Plan of Care End Date 08/26/22 Therapeutic Interventions Therapeutic Interventions Balance Training,Gait Training ,Home Exercise Program,Joint Mobilizations,Manual Therapy, Neuromuscular Re-education, Patient/Caregiver Education, Self-Care/Home Management,Soft Tissue Mobilization, Therapeutic Activities, Therapeutic Exercises Next Visit Focus/Plan Next Note Type Treatment Note Next Visit Plan Hip strengthening, joint mobilizations, STM
--- NOTE | 2022-08-17 16:30 | PT.OTN ---
Current Diagnoses Pain in left hip (08/17/22) Pain in unspecified hip (08/17/22) Stiffness of right hip, not elsewhere classified (08/17/22) Stiffness of left hip, not elsewhere classified (08/17/22) Physical Therapy Treatment Note PT-OP-A Visit Information Start: 06/01/22 18:00 Freq: Status: Active Protocol: Document 08/17/22 15:47 DCW (Rec: 08/17/22 16:30 DCW [id number]) Out-Patient Physical Therapy Visit Information Visit Information Visit Type Treatment Note Visit Start Time 15:47 Visit Stop Time 16:30 Total Visit Minutes 43 Visit Number 12 Number of MEASUREMENT SUPERINTENDENT Visits 0 Evaluation Information Evaluation Date 06/01/22 PT-OP-B Current Condition Start: 06/01/22 18:00 Freq: Status: Active Protocol: Document 06/01/22 16:00 DCW (Rec: 06/02/22 17:56 DCW [id number]) Current Condition History of Current Condition Onset Date ~9 months Current Complaints L Hip feels it like it is going out with lateral movements History of Current Condition Pt is a 41 year old female reporting that she has been having left hip pain and instability since last summer. Notes that specifically with lateral movement or when first getting up, she gets a sharp pain in her hip and it feels like it is going out. Reports there is a big, sharp pain, and then I can't put any weight through it. Typically does a lot of hiking and walking, but is currently unable to walk even two miles . Admits that she has had hip and low back pain for years, but these symptoms are new. Notes she had been working with a massage therapy long- term to try to get her hip even, but stopped when covid began and has not gone back. Denies any falls. Treatment Goals Patient/Caregiver Goals Pt would like to return to hiking and walking without her hip giving out. PT-OP-C Subjective Start: 06/01/22 18:00 Freq: Status: Active Protocol: Document 08/17/22 15:47 DCW (Rec: 08/17/22 16:30 DCW [id number]) OP-PT Subjective Patient Comments Patient Comments Other than my low back kind of going out a little bit, which hasn't happened in a while, I've been feeling really good. PT-OP-F Manual Assessment Start: 06/01/22 18:00 Freq: Status: Active Protocol: Document 08/02/22 15:48 DCW (Rec: 08/02/22 16:00 DCW [id number]) Manual Assessments Joint Mobility Assessment Joint Mobility Assessment Hip end feels currently WNL, equal ROM bilaterally with both internal and external range of motion. PT-OP-K Range of Motion Start: 06/01/22 18:00 Freq: Status: Active Protocol: Document 08/02/22 15:48 DCW (Rec: 08/02/22 16:00 DCW [id number]) Hip Goniometric Range of Motion Hip Right Passive Hip ROM WFL No Testing Position Supine Internal Rotation 50 External Rotation 45 Left Passive Hip ROM WFL No Testing Position Supine Internal Rotation 50 External Rotation 45 PT-OP-L Special Tests Start: 06/01/22 18:00 Freq: Status: Active Protocol: Document 08/02/22 15:48 DCW (Rec: 08/02/22 16:00 DCW [id number]) Special Tests Hip Special Tests Traction Test Results Negative Straight Leg Raise Test Results Negative Scour Test Test Results Negative Piriformis Test Results Mild R Piriformis tightness FREDIS Test Results Negative PT-OP-M Strength Start: 06/01/22 18:00 Freq: Status: Active Protocol: Document 08/02/22 15:48 DCW (Rec: 08/02/22 16:00 DCW [id number]) Hip Strength Hip Manual Muscle Testing Right Flexion (L2) 5 Normal Abduction 4+ Good+ Adduction 5 Normal External Rotation 5 Normal Internal Rotation 5 Normal Left Flexion (L2) 5 Normal Abduction 4+ Good+ Adduction 5 Normal External Rotation 4+ Good+ Internal Rotation 4 Good PT-OP-Q Treatments Start: 06/01/22 18:00 Freq: Status: Active Protocol: Document 08/17/22 15:47 DCW (Rec: 08/17/22 16:30 DCW [id number]) Gym Equipment Shuttle Recovery Plyometric Hopping Details Unilateral hopping Resistance 37# Reps/Time x20 Unilateral Squats Resistance 75# Shuttle Recovery Platform Stable Reps/Time x20 Bilateral Squats Resistance 125# Shuttle Recovery Platform Stable Reps/Time x20 Therapeutic Exercises Sidelying Exercises Triple Threat Sidelying Exercise Name ER->IR->Abduction Hip Abduction Sidelying Exercise Name Hip Abduction Side bilateral Reverse Clamshell Sidelying Exercise Name Reverse Clamshell Side bilateral Clamshell Sidelying Exercise Name Clamshell Side bilateral Other Exercises Monster walks Other Exercise Name Forward/backward diagonal stepping Resistance Blue Resisted Ambulation Other Exercise Name Resisted side-stepping Resistance Blue PT-OP-T Assessment and Plan Start: 06/01/22 18:00 Freq: Status: Active Protocol: Document 08/17/22 15:47 DCW (Rec: 08/17/22 16:30 DCW [id number]) Physical Therapy Assessment Impairments Impairments Functional Activities, Functional Mobility,Pain,ROM, Soft Tissue Mobility,Strength Goals Two Impairment Pt unable to hike due to sudden intense hip pain with some LE movements Bench Worker Binding Goal (LTG) Pt to return to walking/hiking at least four miles without any instances of debilitating left hip pain LTG Duration 08/22/22 One Impairment Pt does not have an appropriate home exercise program Short Term Goal (STG) Pt to be independent and compliant with an appropriate HEP STG Duration 08/22/22 Assessment Summary Assessment Spent much of today reviewing HEP, pt feels comfortable with plans going forward, will likely discharge following last scheduled PT session next week. Physical Therapy Plan Frequency and Duration Frequency of Treatment 1-2x/week Plan of Care Start Date 08/02/22 Plan of Care End Date 08/26/22 Therapeutic Interventions Therapeutic Interventions Balance Training,Gait Training ,Home Exercise Program,Joint Mobilizations,Manual Therapy, Neuromuscular Re-education, Patient/Caregiver Education, Self-Care/Home Management,Soft Tissue Mobilization, Therapeutic Activities, Therapeutic Exercises Next Visit Focus/Plan Next Note Type Discharge Summary Next Visit Plan Hip strengthening, joint mobilizations, STM
--- NOTE | 2022-08-22 16:32 | PT.OTN ---
Current Diagnoses Pain in left hip (08/22/22) Pain in unspecified hip (08/22/22) Stiffness of right hip, not elsewhere classified (08/22/22) Stiffness of left hip, not elsewhere classified (08/22/22) Physical Therapy Treatment Note PT-OP-A Visit Information Start: 06/01/22 18:00 Freq: Status: Active Protocol: Document 08/22/22 15:48 DCW (Rec: 08/22/22 16:31 DCW [id number]) Out-Patient Physical Therapy Visit Information Visit Information Visit Type Discharge Summary Visit Start Time 15:48 Visit Stop Time 16:30 Total Visit Minutes 42 Visit Number 13 Number of TRAVEL TICKETING REVIEWER Visits 0 Evaluation Information Evaluation Date 06/01/22 PT-OP-B Current Condition Start: 06/01/22 18:00 Freq: Status: Active Protocol: Document 06/01/22 16:00 DCW (Rec: 06/02/22 17:56 DCW [id number]) Current Condition History of Current Condition Onset Date ~9 months Current Complaints L Hip feels it like it is going out with lateral movements History of Current Condition Pt is a 41 year old female reporting that she has been having left hip pain and instability since last summer. Notes that specifically with lateral movement or when first getting up, she gets a sharp pain in her hip and it feels like it is going out. Reports there is a big, sharp pain, and then I can't put any weight through it. Typically does a lot of hiking and walking, but is currently unable to walk even two miles . Admits that she has had hip and low back pain for years, but these symptoms are new. Notes she had been working with a massage therapy long- term to try to get her hip even, but stopped when covid began and has not gone back. Denies any falls. Treatment Goals Patient/Caregiver Goals Pt would like to return to hiking and walking without her hip giving out. PT-OP-C Subjective Start: 06/01/22 18:00 Freq: Status: Active Protocol: Document 08/22/22 15:48 DCW (Rec: 08/22/22 16:30 DCW [id number]) OP-PT Subjective Patient Comments Patient Comments I'm excited/not excited that this is my last visit. I know it's now something I just need to keep working on myself, but I just don't like doing that. PT-OP-F Manual Assessment Start: 06/01/22 18:00 Freq: Status: Active Protocol: Document 08/02/22 15:48 DCW (Rec: 08/02/22 16:00 DCW [id number]) Manual Assessments Joint Mobility Assessment Joint Mobility Assessment Hip end feels currently WNL, equal ROM bilaterally with both internal and external range of motion. PT-OP-K Range of Motion Start: 06/01/22 18:00 Freq: Status: Active Protocol: Document 08/22/22 15:48 DCW (Rec: 08/22/22 16:32 DCW [id number]) Hip Goniometric Range of Motion Hip Right Passive Testing Position Supine Internal Rotation 60 External Rotation 45 Left Passive Testing Position Supine Internal Rotation 55 External Rotation 45 PT-OP-L Special Tests Start: 06/01/22 18:00 Freq: Status: Active Protocol: Document 08/02/22 15:48 DCW (Rec: 08/02/22 16:00 DCW [id number]) Special Tests Hip Special Tests Traction Test Results Negative Straight Leg Raise Test Results Negative Scour Test Test Results Negative Piriformis Test Results Mild R Piriformis tightness FREDIS Test Results Negative PT-OP-M Strength Start: 06/01/22 18:00 Freq: Status: Active Protocol: Document 08/02/22 15:48 DCW (Rec: 08/02/22 16:00 DCW [id number]) Hip Strength Hip Manual Muscle Testing Right Flexion (L2) 5 Normal Abduction 4+ Good+ Adduction 5 Normal External Rotation 5 Normal Internal Rotation 5 Normal Left Flexion (L2) 5 Normal Abduction 4+ Good+ Adduction 5 Normal External Rotation 4+ Good+ Internal Rotation 4 Good PT-OP-Q Treatments Start: 06/01/22 18:00 Freq: Status: Active Protocol: Document 08/22/22 15:48 DCW (Rec: 08/22/22 16:30 DCW [id number]) Gym Equipment Cable Column (Body Solid) Hip Adduction Resistance 50# Reps/Time 2x10 Hip Abduction Resistance 40# Reps/Time 2x10 Shuttle Recovery Plyometric Hopping Details Unilateral hopping Resistance 37# Reps/Time x20 Hip Extension Details Hip Extension in Quadruped Resistance 25# Reps/Time 2x10 Unilateral Squats Resistance 75# Shuttle Recovery Platform Stable Reps/Time x20 Bilateral Squats Resistance 125# Shuttle Recovery Platform Stable Reps/Time x20 Shuttle Balance Red Comments Staggered weight shift Lateral weight shift Therapeutic Ball LTR Exercise Details LTR Ball Size/Color Red - 55 cm Body Position Supine Bridging Exercise Details Bridging, then added HS curls Ball Size/Color Red - 55 cm Body Position Supine Manual Therapy Treatment Soft Tissue Mobilization Hip Flexor Body Location L hip flexor Mobilization Type Sustained Pressure,Trigger Point Release Intensity/Depth Superficial Body Position Hooklying PT-OP-T Assessment and Plan Start: 06/01/22 18:00 Freq: Status: Active Protocol: Document 08/22/22 15:48 DCW (Rec: 08/22/22 16:30 DCW [id number]) Physical Therapy Assessment Impairments Impairments Functional Activities, Functional Mobility,Pain,ROM, Soft Tissue Mobility,Strength Goals Two Impairment Pt unable to hike due to sudden intense hip pain with some LE movements Custodial Goal (LTG) Pt to return to walking/hiking at least four miles without any instances of debilitating left hip pain LTG Duration Met One Impairment Pt does not have an appropriate home exercise program Short Term Goal (STG) Pt to be independent and compliant with an appropriate HEP STG Duration Met Progress Towards Goals Progress Towards Goals Goals Met Assessment Summary Assessment Pt has made great overall progress, has met all goals, is no longer experiencing instance of her hip giving out during more strenuous activity. Appropriate to discharge at this time. Physical Therapy Plan Frequency and Duration Frequency of Treatment 1-2x/week Plan of Care Start Date 08/02/22 Plan of Care End Date 08/26/22 Therapeutic Interventions Therapeutic Interventions Balance Training,Gait Training ,Home Exercise Program,Joint Mobilizations,Manual Therapy, Neuromuscular Re-education, Patient/Caregiver Education, Self-Care/Home Management,Soft Tissue Mobilization, Therapeutic Activities, Therapeutic Exercises Discharge Physical Therapy Discharge Reasons Goals Met Next Visit Focus/Plan Next Note Type Discharge Summary
== END 2022-08-24 15:48 | disposition home or self-care (01) ==
LOC: PHYS 15:45
PROVIDERS: Absent Provider Family Medicine; Family Provider Family Medicine; PCP Family Medicine; Referring Provider Family Medicine; Visit Provider Family Medicine
DX: M25.559 Pain in unspecified hip (principal); M25.552 Pain in left hip; M25.652 Stiffness of left hip, not elsewhere classified; M25.651 Stiffness of right hip, not elsewhere classified
CPT/HCPCS: 97110; 97140; 97161

== ENCOUNTER → 2023-01-28 | Outpatient (CLI) | payer OTHER, SELFPAY | PROVIDERS: Family Provider Family Medicine; PCP Family Medicine; Referring Provider Student in an Organized Health Care Education/Training Program; Visit Provider Student in an Organized Health Care Education/Training Program | CPT/HCPCS: 77063; 77067 ==

== ENCOUNTER → 2024-01-31 17:14 | Outpatient (CLI) | payer OTHER, SELFPAY ==
--- NOTE | 2024-01-31 17:15 | DI.MG.S_ITS ---
BILATERAL DIGITAL SCREENING MAMMOGRAM 3D/2D WITH CAD: 01/31/2024 CLINICAL: Routine screening. Family history of breast cancer. Comparison is made to exams dated: 01/25/2022 mammogram, 01/20/2021 mammogram, and 01/20/2020 mammogram - [facility]. There are scattered areas of fibroglandular density (category b / 25%-50% glandular tissue). Current study was also evaluated with a Computer Aided Detection (CAD) system. No significant masses, calcifications, or other findings are seen in either breast. There has been no significant interval change. IMPRESSION: NEGATIVE There is no mammographic evidence of malignancy. A 1 year screening mammogram is recommended. Based on Tyrer-Cuzick model (a risk assessment model), the patient's lifetime risk is 21.6% and her 10 year risk is 4.2%. If a patient has an elevated risk, a more comprehensive evaluation should be considered and/or a referral to a genetic counselor. The [employer], [employer], and NCCN Guidelines advise the consideration of Breast MRI as an adjunct to screening mammography in patients whose Lifetime risk to develop breast cancer is 20% or higher. This exam was interpreted at Station ID: [id number]. NOTE: For mammograms, a report in lay terms will be sent to the patient. Approximately 15% of breast malignancies will not be visualized mammographically. In the management of a palpable breast mass, a negative mammogram must not discourage biopsy of a clinically suspicious lesion. Electronically Signed By: Vanita Hart M.D., Ph.D. victor hugo/sarah:02/01/2024 21:45:28 letter sent: Normal Exam ACR BI-RADS Category 1: Negative
== END ==
LOC: MAMMO 17:14
PROVIDERS: Family Provider Family Medicine; PCP Student in an Organized Health Care Education/Training Program; Referring Provider Student in an Organized Health Care Education/Training Program; Visit Provider Student in an Organized Health Care Education/Training Program
DX: Z12.31 Encounter for screening mammogram for malignant neoplasm of breast (principal); Z80.3 Family history of malignant neoplasm of breast
CPT/HCPCS: 77063; 77067

== ENCOUNTER → 2024-04-01 08:55 | Outpatient (CLI) | payer OTHER, SELFPAY ==
[2024-04-01 09:36] LABS: Hemoglobin A1C% w Est Avg Glu 5.3 % (4.0-6.0)
[2024-04-01 09:47] LABS: Alanine Aminotransferase 28 IU/L (<35); Albumin 4.5 g/dL (3.5-5.0); Albumin Globulin Ratio 1.8 (1.0-2.8); Alkaline Phosphatase 59 U/L (38-126); Aspartate Aminotransferase 29 IU/L (14-36); BUN Creatinine Ratio 21.5 (6-22); Bilirubin Total 0.6 mg/dL (0.2-1.3); Blood Urea Nitrogen 14 mg/dL (7-17); Calcium 9.7 mg/dL (8.4-10.2); Carbon Dioxide 27 mmol/L (22-32); Chloride 104 mmol/L (98-107); Cholesterol 243 mg/dL (140-199); Estimated Glomerular Filt Rate > 60 mL/min (>60); Globulin 2.5 g/dL (1.7-4.1); Glucose 93 mg/dL (70-100); HDL Cholesterol 92 mg/dL (40-60); HEMOLYSIS < 15 (0-50); LDL Cholesterol Calculated 135 mg/dL (<100); Potassium 4.3 mmol/L (3.4-5.1); Sodium 135 mmol/L (137-145); Triglycerides 82 mg/dL (35-150)
[2024-04-01 10:17] LABS: Thyroid Stimulating Hormone 1.17 uIU/mL (0.47-4.68)
--- NOTE | 2024-04-01 12:59 | DI.MRI.S_ITS ---
BREAST MRI OF BOTH BREASTS: 04/01/2024 CLINICAL: High risk screening. PROCEDURE: MR BREAST BI WO/W CON INDICATIONS: High risk screening, > 20% tyrer-cuzick score TECHNIQUE: The patient was placed prone in a dedicated breast imaging coil. Precontrast axial STIR and 3D FLASH without fat saturation sequences were obtained. Both before and after bolus injection of contrast, sequential 1-minute axial 3D FLASH with fat saturation sequences for 3 time points, with subtraction images and maximum intensity projections (MIP's) generated. Delayed sagittal FLASH images with fat saturation were also obtained. Computer-aided detection, including computer algorithm analysis of MRI image data for lesion detection and characterization, pharmacokinetic analysis, with further physician review for interpretation, was performed. COMPARISON: Mammogram 01/31/2024, 01/25/2022. And thyroid ultrasound 01/18/2022 and 04/02/2019 FINDINGS: Image quality: Diagnostic. There is scattered amount of fibroglandular tissue. There is minimal and symmetric background parenchymal enhancement. Right breast: There is no suspicious enhancement or lymphadenopathy. Left breast: There is no suspicious enhancement or lymphadenopathy. Miscellaneous: Redemonstration of multiple bilateral thyroid nodules, previously characterized on prior thyroid ultrasounds. IMPRESSION: NEGATIVE No MRI evidence of malignancy. Recommend continued routine annual screening. This exam was interpreted at Station ID: [id number]. Electronically Signed By: Vanita Hart M.D., Ph.D. eb/:04/04/2024 10:13:59 ACR BI-RADS Category 1: Negative
== END ==
PROVIDERS: Family Provider Family Medicine; PCP Student in an Organized Health Care Education/Training Program; Referring Provider Student in an Organized Health Care Education/Training Program; Visit Provider Student in an Organized Health Care Education/Training Program
DX: E66.9 Obesity, unspecified (principal); E04.2 Nontoxic multinodular goiter; Z91.89 Other specified personal risk factors, not elsewhere classified; Z80.3 Family history of malignant neoplasm of breast; Z12.39 Encounter for other screening for malignant neoplasm of breast
CPT/HCPCS: 77049; 80053; 80061; 83036; 84443; A9579

== ENCOUNTER → 2024-04-17 16:25 | Outpatient (CLI) | payer OTHER, SELFPAY ==
--- NOTE | 2024-04-17 16:26 | DI.US.S_ITS ---
PROCEDURE: US THYROID INDICATIONS: Goiter TECHNIQUE: Real-time scanning was performed of the thyroid gland, with image documentation. COMPARISON: US, US THYROID, 04/02/2019, 17:09. US, THYROID, 02/28/2017, 14:02. US, THYROID, 12/17/2015, 16:38. [facility], US, US THYROID, 01/18/2022, 16:57. FINDINGS: Thyroid: Right lobe measures 5.8 x 1.9 x 1.5 cm. Left lobe measures 3.9 x 2.3 x 3.2 cm. Isthmus is 0.4 cm thick. Echotexture is heterogeneous. Nodule number: 1 Location: Left Size: 3.9 x 2.3 x 3.2 cm compared to 4.5 x 3.0 x 2.8 cm. Composition: Solid Echogenicity: Hypoechoic Shape: wider than tall. Margins: Smooth Echogenic foci: Punctate Total points: 7 ACR TI-RADS category: 5 Nodule number: 2 Location: Right mid Size: 3.1 x 1.4 x 1.3 cm compared to 3.2 x 1.3 x 1.4 cm. Composition: Solid Echogenicity: Hypoechoic Shape: wider than tall. Margins: Smooth Echogenic foci: Punctate Total points: 7 ACR TI-RADS category: 5 Nodule number: 3 Location: Right inferior Size: 1.8 x 1.0 x 1.2 cm compared to 1.9 x 1.1 x 1.1 cm. Composition: Solid Echogenicity: Hypoechoic Shape: wider than tall. Margins: Smooth Echogenic foci: Punctate Total points: 7 ACR TI-RADS category: 5 IMPRESSION: Nodules above are all considered category 5. Lesions have been relatively stable over multiple years and recommendation is for imaging follow-up up to 5 years. Given size, FNA may also be obtained. However, given multiple year stability imaging follow-up is favored. ACR TI-RADS definitions and recommendations: TI-RADS 1 (benign): 0 points. FNA not needed. TI-RADS 2 (not suspicious): 2 points. FNA not needed. TI-RADS 3: 3 points. * FNA if 2.5 cm or larger, follow up if 1.5 cm or larger (at 1, 3, and 5 years). TI-RADS 4: 4-6 points. * FNA if 1.5 cm or larger, follow up if 1 cm or larger (at 1, 2, 3, and 5 years). TI-RADS 5: 7 points or more. * FNA if 1 cm or larger, follow up if 0.5 cm or larger (every year for 5 years). Dictated by: Shawna Glasgow M.D. on 04/18/2024 at 13:54 Approved by: Shawna Glasgow M.D. on 04/18/2024 at 13:59
== END ==
LOC: US 16:25
PROVIDERS: Family Provider Family Medicine; PCP Student in an Organized Health Care Education/Training Program; Referring Provider Student in an Organized Health Care Education/Training Program; Visit Provider Student in an Organized Health Care Education/Training Program
DX: E04.2 Nontoxic multinodular goiter (principal)
CPT/HCPCS: 76536

== ENCOUNTER 2024-05-21 06:41 | Day surgery (SDC) | payer OTHER, SELFPAY ==
--- NOTE | 2024-05-21 | PATH_ITS ---
[facility] Accession Number: [id number] No. of containers..01 Tissue . 01 Material submitted: . colon - DESCENDING POLYP X 2 . 01 Diagnosis: DESCENDING COLON POLYPS: Tubular adenoma. Additional colonic mucosa with benign lymphoid aggregate. MRV 05/23/2024 1340 Local . 01 Electronically signed: . Luz De León MD, Pathologist NPI- [id number] . 01 Gross description: . DESCENDING POLYP X 2: Received in formalin are 2 fragment(s) of jenkins, soft tissue measuring 0.8 x 0.3 x 0.3 cm to 0.9 x 0.6 x 0.4 cm submitted entirely in 1 cassette(s) /KEI 05/22/2024 1900 Local . 01 Pathologist provided ICD-10: D12.4, K63.89 . 01 CPT . 781840 Specimen Comment: A courtesy copy of this report has been sent to [facility] Pathology Performed at: [address] [address], [place], [place] [id number] MD Sukhjinder Raymundo MD Phone: [phone]
[2024-05-21 07:17] VITALS: BP 120/85; PULSE 76; RESP 16; TEMP 36.6; O2SAT 97
[2024-05-21] MEDS: LACTATED RINGERS 1,000 ML 42 ML IV (07:20)
--- NOTE | 2024-05-21 07:45 | P.HP_ITS ---
History of Present Illness History of Present Illness Date Patient Seen: 05/21/24 Time Patient Seen: 07:45 Date of Onset of Symptoms: 05/21/24 Chief complaint: Colonoscopy Narrative: 44-year-old female presents for initial screening colonoscopy. No family history [facility], [facility] Medical History (Updated 05/21/24 @ 07:46 by Everardo Thomas MD) Colon cancer screening (05/21/24) Skin cancer BMI 31.0-31.9,adult Multinodular goiter (2012) Chronic back pain (~2006) Rosacea Plantar wart Surgical History Anesthesia Status post Mohs surgery (~05/2015) History of tonsillectomy (~2010) Status post delivery (~2012) History of third molar tooth extraction Family History Grandfather Heart disease Grandmother Colon cancer Mother Age: 78 Malignant neoplasm of female breast, unspecified laterality, unspecified site of breast Grandfather Throat cancer Grandmother Stroke Father Hypertension Social History marital status: occupational status: employed current occupational exposures/hazards: No Smoking Status: Never smoker alcohol intake: current substance use type: does not use Meds Home Medications and Allergies Home Medications Medication Instructions Recorded Confirmed Type No Known Home Medications 05/21/24 05/21/24 History Allergies Allergy/AdvReac Type Severity Reaction Status Date / Time Sulfa (Sulfonamide Allergy Mild Verified 05/21/24 07:13 Antibiotics) [SULFA (SULFONAMIDE ANTIBIOTICS)] Review of Systems Review of Systems ROS: Yes All systems reviewed with the patient and are negative except as otherwise documented Exam Vital Signs (past 8 hours): - 05/21/24 07:17 Temperature 97.8 F Pulse Rate 76 Respiratory Rate 16 Blood Pressure 120/85 Pulse Oximetry 97 Oxygen Delivery Method Room Air Oxygen Delivery Method Room Air Narrative Exam Narrative: Gen: NAD, sitting comfortably in bed, appears well HEENT: Sclera are anicteric, head is normocephalic and atraumatic, trachea is midline. CV: RRR, no JVD Resp: clear to auscultation bilaterally, equal chest wall movement bilaterally Abd: soft, nontender, normoactive bowel sounds Ext: no edema, full range of motion Neuro: Cranial nerves II-XII grossly intact, no focal deficits Skin: No erythema or ecchymosis Assessment & Plan Assessment and plan (1) Colon cancer screening: Status: Acute Assessment & Plan narrative: Patient presents for colonoscopy Risks, benefits, alternatives to colonoscopy explained, including but not limited to bowel perforation or other serious complication requiring surgery at less than 1 in 5000 colonoscopies, abdominal pain, cramping or bleeding and less than 1% of colonoscopies, and the chances that we find a diagnosis that would require further intervention of about 2%. Patient agrees to proceed. Time-Based Coding :: [TOTAL MINUTES] spent with patient and on the chart (including review of chart, obtaining history, exam, reviewing outside data, placing orders, documenting exam and treatment plan, and counseling patient) on [DATE]. PROFEE Furnace Combustion Analyst Document charge(s): No
--- NOTE | 2024-05-21 08:05 | PM.OP.COLON ---
Operative Date/Time/Diagnoses Date of procedure: 05/21/24 Time of procedure: 08:05 Pre-op diagnosis: Colon screening Post-op diagnosis: other (Descending colon polyps x2) Procedure & Clinicians Study performed: Colonoscopy with cold snare polypectomy of polyps x2 Same procedure as scheduled: Yes Indications: Colon screening Surgeon: Everardo Thomas Procedure Notes SCOAP/Timeout: Performed Procedure in detail: Time-out was performed. Mac was induced. Patient was placed in left lateral decubitus position. The perineum was inspected without any gross abnormality. Lubricated pediatric colonoscope was inserted and advanced to the cecum. The terminal ileum was intubated. The colonoscope was withdrawn slowly inspecting the circumference of the colon. Two benign-appearing polyps were noted in the descending colon, these were both removed with cold snare polypectomy completely and retrieved. Very small polyps may have been missed, prep quality was adequate. Retroflexed view of the rectum showed small, non prolapsed nonbleeding internal hemorrhoids. The scope was withdrawn the patient was taken to PACU in good condition. Scope withdrawal time: 9 Findings: polyp(s) (Benign-appearing descending colon polyps x2) Specimen(s): other (Descending colon polyps x2) Complications: none Impression: Benign-appearing polyps Post-procedure Recommendations: Colonoscopy in 10 years (Next colonoscopy in 7 years) Follow up: as needed Disposition: PACU
[2024-05-21 08:07] VITALS: BP 110/70; PULSE 75; RESP 15; TEMP 36.1; O2SAT 96
[2024-05-21 08:11] VITALS: BP 109/74; PULSE 63; RESP 13; O2SAT 96
[2024-05-21 08:18] VITALS: BP 109/69; PULSE 62; RESP 14; TEMP 35.9; O2SAT 96
== END 2024-05-21 08:36 | disposition home or self-care (01) ==
PROVIDERS: Family Provider Family Medicine; PCP Student in an Organized Health Care Education/Training Program; Referring Provider Surgery; Visit Provider Surgery
PROC: 0DJD8ZZ Inspection of Lower Intestinal Tract, Via Natural or Artificial Opening Endoscopic (ICD-10-PCS; CPT 45378; principal; 2024-05-21 07:45)
DX: Z12.11 Encounter for screening for malignant neoplasm of colon (principal); K64.8 Other hemorrhoids; D12.4 Benign neoplasm of descending colon
CPT/HCPCS: 45385; J2405; J2704